=== PATIENT | female | born 1965 | race Caucasian/White ===

== ENCOUNTER 2017-02-09 09:03 | Emergency (ER) | payer MEDICAID, OTHER ==
[~2017-02-09] VITALS: Ht 167.6 cm; Wt 102.1 kg
--- OUTSIDE RECORDS SUMMARY | 2017-02-09 09:12 | XMS REPORT ---
Author MARJ Stoner [facility] eClinicalWorks Address Unknown Phone Unavailable Care Team Providers Care Service Desk Analyst Name Role Phone MARJ GRAY CP Unavailable Allergies, Adverse Reactions, Alerts Substance Reaction Event Type Morphine Unable to wake up Drug Allergy Problems Problem Type Condition Code Onset Dates Condition Status Assessment Breast cancer screening Z12.39 Active Problem Obesity (BMI 30.0-34.9) E66.9 Active Assessment Well woman exam with routine gynecological exam Z01.419 Active Assessment Anal warts A63.0 Active Assessment Cervical high risk human papillomavirus (HPV) DNA test positive R87.810 Active Problem Anal warts A63.0 Active Problem Migraine G43.909 Active Problem Cervical high risk human papillomavirus (HPV) DNA test positive R87.810 Active Problem Benign essential hypertension I10 Active Problem Allergic rhinitis J30.9 Active Problem Obesity E66.9 Active Problem Tobacco abuse Z72.0 Active Medications Medication Code System Code Instructions Start Date End Date Status Dosage Cetirizine HCl [facility] [address]-77 10 MG Orally Once a day 1 tablet Ibuprofen [facility] 80644845465 800 MG Orally 2 times a day PRN 1 tablet Lisinopril [facility] [address]-10 5 mg Orally Once a day Dec 19, 2014 1 tablet Amitriptyline HCl [facility] 60759370206 25 MG Orally Once a day 1 tablet Flonase NDC 0 50 mcg/actuation Nasally Once a day Mar 30, 2014 1 sprays by Nasal route 2 times per day in each nostril Hydrochlorothiazide [facility] [address]-10 12.5 MG Orally Once a day Dec 19, 2014 1 capsule Singulair [facility] [address]-33 10 mg Orally Once a day Oct 18, 2015 1 tablet Maxalt [facility] [address]-96 10 mg Orally take for only migraine headaches- may repeat every 2 hours up to 3 tablets total in 24hrs Dec 19, 2014 1 tablet Procedures Procedure Coding System Code Date Office Visit, Est Pt., Level 3 CPT-4 80317 Jan 07, 2016 SPECIMEN HANDLING CPT-4 15937 Jan 07, 2016 Vital Signs Date/Time: Jan 07, 2016 Cardiac Monitoring Heart Rate 81 bpm Weight 229.0 lbs Height 66 in BMI 36.96 Index Blood Pressure Diastolic 86 mmHg Blood Pressure Systolic 132 mmHg Results No Known Results Summary Purpose eClinicalWorks Submission
--- OUTSIDE RECORDS SUMMARY | 2017-02-09 09:12 | XMS REPORT ---
Author MARJ Stoner [facility] eClinicalWorks Address Unknown Phone Unavailable Care Team Providers Care Loss Control Engineer Name Role Phone MARJ GRAY CP Unavailable Allergies, Adverse Reactions, Alerts Substance Reaction Event Type Morphine Unable to wake up Drug Allergy Problems Problem Type Condition Code Onset Dates Condition Status Problem Obesity E66.9 Active Problem Tobacco abuse Z72.0 Active Problem Migraine G43.909 Active Problem Obesity (BMI 30.0-34.9) E66.9 Active Assessment Diarrhea, unspecified type R19.7 Active Problem Benign essential hypertension I10 Active Problem Allergic rhinitis J30.9 Active Medications Medication Code System Code Instructions Start Date End Date Status Dosage Acidophilus [facility] 19581-[address]750 100 MG Orally 2 times a day September 06, 2015 September 13, 2015 1 capsule Cetirizine HCl [facility] [address]-52 10 MG Orally Once a day Nov 07, 2014 Nov 02, 2015 1 tablet as needed Pepto-Bismol [facility] 21210-41947 262 MG Orally 3 times a day September 06, 2015 September 09, 2015 2 tablets Lisinopril [facility] [address]-74 5 mg Orally-FOLLOW UP IN NOVEMBER Once a day Dec 19, 2014 1 tablet Flonase [facility] [address]-71 50 mcg/actuation Nasally Once a day Mar 30, 2014 1 sprays by Nasal route 2 times per day in each nostril Hydrochlorothiazide [facility] [address]-87 12.5 MG Orally-FOLLOW UP IN NOVEMBER Once a day Dec 19, 2014 1 capsule Amitriptyline HCl [facility] 06526961307 25 MG Orally Once a day TAKE ONE TABLET BY MOUTH ONCE DAILY AT BEDTIME. Ibuprofen [facility] 34462383926 800 MG take 1 tablet twice a day as needed Orally Maxalt [facility] [address]-48 10 mg Orally take for only migraine headaches- may repeat every 2 hours up to 3 tablets total in 24hrs Dec 19, 2014 1 tablet Procedures Procedure Coding System Code Date Office Visit, Est Pt., Level 3 CPT-4 52104 September 06, 2015 Vital Signs Date/Time: September 06, 2015 Cardiac Monitoring Heart Rate 87 bpm Weight 228.3 lbs Height 66 in Blood Pressure Diastolic 60 mmHg Blood Pressure Systolic 108 mmHg Results No Known Results Summary Purpose eClinicalWorks Submission
--- OUTSIDE RECORDS SUMMARY | 2017-02-09 09:12 | XMS REPORT ---
Author [facility] Address [address] [place] [address] Care Team Providers Care Forest Ranger Name Role Phone MARJ GRAY Unavailable PROBLEMS Type Condition ICD9-CM Code [id number] Code Onset Dates Condition Status SNOMED Code Problem Obesity (BMI 30.0-34.9) E66.9 Active 188553455712731 Problem Benign essential hypertension I10 Active 6972683 Problem Allergic rhinitis J30.9 Active 09100295 Problem Bronchitis J40 Active 33651997 Problem Anal warts A63.0 Active 317365648 Problem Migraine G43.909 Active 55739148 Problem Tobacco abuse Z72.0 Active 27950569 Problem Cervical high risk human papillomavirus (HPV) DNA test positive R87.810 Active 487975266 Problem Obesity E66.9 Active 915209165 ALLERGIES Unknown Allergies SOCIAL HISTORY No smoking Hx information available PLAN OF CARE VITAL SIGNS MEDICATIONS Unknown Medications RESULTS No Results PROCEDURES No Known procedures IMMUNIZATIONS No Known Immunizations
--- OUTSIDE RECORDS SUMMARY | 2017-02-09 09:12 | XMS REPORT ---
Author MARJ Stoner eClinicalWorks Address Unknown Phone Unavailable Care Team Providers Care Dermatology Physician Assistant Name Role Phone MARJ GRAY CP Unavailable Allergies, Adverse Reactions, Alerts Substance Reaction Event Type Morphine Unable to wake up Drug Allergy Problems Problem Type Condition Code Onset Dates Condition Status Problem Benign essential hypertension I10 Active Problem Allergic rhinitis J30.9 Active Problem Tobacco abuse Z72.0 Active Assessment Recurrent acute sinusitis J01.91 Active Problem Obesity (BMI 30.0-34.9) E66.9 Active Assessment Head lice B85.0 Active Medications Medication Code System Code Instructions Start Date End Date Status Dosage Cetirizine HCl [facility] [address]-35 10 MG Orally Once a day Nov 07, 2014 Nov 02, 2015 1 tablet as needed Flonase [facility] [address]-67 50 mcg/actuation Nasally Once a day Mar 30, 2014 1 sprays by Nasal route 2 times per day in each nostril Sklice [facility] [address]-52 0.5 % Externally one time Dec 08, 2014 as directed Augmentin [facility] [address]-85 875-125 MG Orally every 12 hrs Dec 08, 2014 Dec 18, 2014 1 tablet Ibuprofen [facility] 70063023449 800 MG take 1 tablet by Oral route 2 times per day with food PRN PredniSONE [facility] [address]-42 20 MG Orally Once a day Dec 08, 2014 Dec 13, 2014 1 tablet with food or milk Lisinopril-Hydrochlorothiazide [facility] 43613042768 10-12.5 MG take 1 tablet by Oral route 1 time per day take in am Tessalon Perles [facility] [address]-69 100 MG Orally 3 times a day Dec 08, 2014 Dec 15, 2014 1 capsule as needed Procedures Procedure Coding System Code Date Office Visit, Est Pt., Level 3 CPT-4 74912 Dec 08, 2014 Vital Signs Date/Time: Dec 08, 2014 Temperature 97.8 F Weight 205.1 lbs Height 66 in BMI 33.10 Index Blood Pressure Diastolic 88 mmHg Blood Pressure Systolic 128 mmHg Cardiac Monitoring Heart Rate 97 bpm Results No Known Results Summary Purpose eClinicalWorks Submission
--- OUTSIDE RECORDS SUMMARY | 2017-02-09 09:12 | XMS REPORT ---
Author MARJ Stoner eClinicalWorks Address Unknown Phone Unavailable Care Team Providers Care Horticultural Agent Name Role Phone MARJ GRAY CP Unavailable Allergies, Adverse Reactions, Alerts Substance Reaction Event Type Morphine Unable to wake up Drug Allergy Problems Problem Type Condition Code Onset Dates Condition Status Assessment Obesity E66.9 Active Assessment Migraine G43.909 Active Assessment Allergic rhinitis J30.9 Active Problem Obesity E66.9 Active Problem Tobacco abuse Z72.0 Active Problem Migraine G43.909 Active Problem Obesity (BMI 30.0-34.9) E66.9 Active Assessment Benign essential hypertension I10 Active Problem Benign essential hypertension I10 Active Problem Allergic rhinitis J30.9 Active Medications Medication Code System Code Instructions Start Date End Date Status Dosage Flonase [facility] [address]-65 50 mcg/actuation Nasally Once a day Mar 30, 2014 1 sprays by Nasal route 2 times per day in each nostril Lisinopril [facility] [address]-03 5 MG Orally Once a day Dec 19, 2014 1 tablet Tessalon Perles [facility] [address]-42 not defined Hydrochlorothiazide [facility] [address]-94 12.5 MG Orally Once a day Dec 19, 2014 1 capsule Maxalt [facility] [address]-15 10 MG Orally take for only migraine headaches- may repeat every 2 hours up to 3 tablets total in 24hrs Dec 19, 2014 1 tablet Ibuprofen [facility] [address]-93 800 MG Orally twice a day as needed take 1 tablet Amitriptyline HCl [facility] [address]-18 25 MG Orally Once a day- bedtime Nov 1 tablet Procedures Procedure Coding System Code Date LIPID PANEL CPT-4 39298 Dec 19, 2014 COMPLETE CBC W/AUTO DIFF WBC CPT-4 60737 Dec 19, 2014 COMPREHEN METABOLIC PANEL CPT-4 20871 Dec 19, 2014 VENIPUNCT, ROUTINE* CPT-4 57768 Dec 19, 2014 ASSAY THYROID STIM HORMONE CPT-4 75002 Dec 19, 2014 Office Visit, Est Pt., Level 4 CPT-4 56723 Dec 19, 2014 Vital Signs Date/Time: Dec 19, 2014 Temperature 98.2 F Weight 203.8 lbs Height 66 in BMI 32.89 Index Blood Pressure Diastolic 78 mmHg Blood Pressure Systolic 110 mmHg Cardiac Monitoring Heart Rate 91 bpm Results Name Result Date Reference Range Unit Abnormality Flag ROUTINE VENIPUNCTURE Summary Purpose eClinicalWorks Submission
--- OUTSIDE RECORDS SUMMARY | 2017-02-09 09:12 | XMS REPORT ---
Author Author MARJ GRAY [facility] Address [address] [place] [address] Care Team Providers Care Strapping Machine Operator Name Role Phone MARJ GRAY Unavailable PROBLEMS Type Condition ICD9-CM Code [id number] Code Onset Dates Condition Status SNOMED Code Problem Obesity (BMI 30.0-34.9) E66.9 Active 168667506965231 Problem Benign essential hypertension I10 Active 6947101 Problem Allergic rhinitis J30.9 Active 10772850 Problem Bronchitis J40 Active 14610679 Problem Anal warts A63.0 Active 380550105 Problem Migraine G43.909 Active 29676651 Problem Tobacco abuse Z72.0 Active 81053789 Problem Cervical high risk human papillomavirus (HPV) DNA test positive R87.810 Active 958298072 Problem Obesity E66.9 Active 424085032 ALLERGIES Substance Reaction Event Type Date Status Morphine Unable to wake up Drug Allergy Apr, Active SOCIAL HISTORY Never Assessed PLAN OF CARE Activity Details Follow Up prn Reason: VITAL SIGNS Height 66 in 2016-04-14 Weight 228.8 lbs 2016-04-14 Temperature 99.8 degrees Fahrenheit 2016-04-14 Heart Rate 90 bpm 2016-04-14 Respiratory Rate 18 2016-04-14 BMI 36.93 kg/m2 2016-04-14 Blood pressure systolic 118 mmHg 2016-04-14 Blood pressure diastolic 82 mmHg 2016-04-14 MEDICATIONS Medication Instructions Dosage Frequency Start Date End Date Duration Status Flonase 50 mcg/actuation Nasally Once a day 1 sprays by Nasal route 2 times per day in each nostril 24h Mar, Active Cetirizine HCl 10 MG Orally Once a day 1 tablet 24h Active Hydrochlorothiazide 12.5 MG Orally Once a day 1 capsule 24h Nov, Active Sudafed 30 MG Orally 3 times a day 1 tablet as needed for congestion 8h Jan, Active Singulair 10 mg Orally Once a day 1 tablet 24h Sep, Active Maxalt 10 mg Orally take for only migraine headaches- may repeat every 2 hours up to 3 tablets total in 24hrs 1 tablet Nov, Active Ibuprofen 800 MG Orally 2 times a day PRN 1 tablet Active Lisinopril 5 mg Orally Once a day 1 tablet 24h Nov, Active Amitriptyline HCl 25 MG Orally Once a day 1 tablet 24h Active ProAir HFA 108 (90 Base) MCG/ACT Inhalation every 4-6 hours as needed 2 puffs as needed Apr, Active RESULTS Name Result Date Reference Range INFLUENZA A & B (IN HOUSE) 2016-04-14 INFLUENZA A neg INFLUENZA B neg Control pos Lot # [id number] Exp date 02/17/18 PROCEDURES Procedure Date Ordered Result Body Site INFLUENZA ASSAY W/OPTIC Apr 14, 2016 IMMUNIZATIONS No Known Immunizations MEDICAL (GENERAL) HISTORY Type Description Date Medical History Nondependent tobacco use disorder Medical History Essential hypertension, benign Medical History Migraine- frontal Surgical History tonsillectomy and adenoidectomy Surgical History cholecystectomy 1995 Hospitalization History childbirth only
--- OUTSIDE RECORDS SUMMARY | 2017-02-09 09:13 | XMS REPORT ---
Author MARJ Stoner [facility] eClinicalWorks Address Unknown Phone Unavailable Care Team Providers Care Aquatics Specialist Name Role Phone MARJ GRAY CP Unavailable Allergies, Adverse Reactions, Alerts Substance Reaction Event Type Morphine Unable to wake up Drug Allergy Problems Problem Type Condition Code Onset Dates Condition Status Assessment Tobacco abuse Z72.0 Active Assessment Migraine G43.909 Active Assessment Allergic rhinitis J30.9 Active Problem Obesity E66.9 Active Problem Tobacco abuse Z72.0 Active Problem Migraine G43.909 Active Problem Obesity (BMI 30.0-34.9) E66.9 Active Assessment Benign essential hypertension I10 Active Problem Benign essential hypertension I10 Active Problem Allergic rhinitis J30.9 Active Medications Medication Code System Code Instructions Start Date End Date Status Dosage Amitriptyline HCl [facility] 74567858446 25 MG Orally Once a day 1 tablet Hydrochlorothiazide [facility] [address]-42 12.5 MG Orally Once a day Dec 19, 2014 1 capsule Lisinopril [facility] [address]-34 5 mg Orally Once a day Dec 19, 2014 1 tablet Maxalt [facility] [address]-00 10 mg Orally take for only migraine headaches- may repeat every 2 hours up to 3 tablets total in 24hrs Dec 19, 2014 1 tablet Ibuprofen [facility] 01743811815 800 MG Orally 2 times a day PRN 1 tablet Flonase NDC 0 50 mcg/actuation Nasally Once a day Mar 30, 2014 1 sprays by Nasal route 2 times per day in each nostril Singulair [facility] [address]-40 10 mg Orally Once a day Oct 18, 2015 1 tablet Diflucan [facility] [address]-23 150 MG Orally once a day Oct 18, 2015 1 tablet Procedures Procedure Coding System Code Date VENIPUNCT, ROUTINE* CPT-4 83611 Dec 17, 2015 Office Visit, Est Pt., Level 3 CPT-4 22181 Dec 17, 2015 [facility] NOBLL Dec 17, 2015 Vital Signs Date/Time: Dec 17, 2015 Cardiac Monitoring Heart Rate 99 bpm Weight 223.6 lbs Height 66 in BMI 36.09 Index Blood Pressure Diastolic 90 mmHg Blood Pressure Systolic 132 mmHg Results Name Result Date Reference Range Unit Abnormality Flag ROUTINE VENIPUNCTURE CMP ----Sodium, Serum 142 [id number] 136-144 mmol/L ----BUN/Creatinine Ratio 13 92735026 9-23 ----Chloride, Serum 101 [id number] 97-106 mmol/L ----Potassium, Serum 3.3 69807348 3.5-5.2 mmol/L L ----Calcium, Serum 9.8 47785682 8.7-10.2 mg/dL ----Protein, Total, Serum 6.8 03361173 6.0-8.5 g/dL ----Carbon Dioxide, Total 25 94544244 18-29 mmol/L ----A/G Ratio 1.7 87954050 1.1-2.5 ----eGFR If NonAfricn Am 73 [id number] >59 mL/min/1.73 ----Bilirubin, Total <0.2 71533101 0.0-1.2 mg/dL ----eGFR If Africn Am 84 [id number] >59 mL/min/1.73 ----BUN 12 [id number] 6-24 mg/dL ----Albumin, Serum 4.3 62160076 3.5-5.5 g/dL ----Globulin, Total 2.5 63271762 1.5-4.5 g/dL ----Creatinine, Serum 0.92 93716272 0.57-1.00 mg/dL ----ALT (SGPT) 49 66891147 0-32 IU/L H ----Glucose, Serum 96 20213902 65-99 mg/dL ----Alkaline Phosphatase, S 68 01603498 39-117 IU/L ----AST (SGOT) 29 [id number] 0-40 IU/L Summary Purpose eClinicalWorks Submission
--- OUTSIDE RECORDS SUMMARY | 2017-02-09 09:13 | XMS REPORT ---
Author MARJ Stoner [facility] eClinicalWorks Address Unknown Phone Unavailable Care Team Providers Care Fermentation Scientist Name Role Phone MARJ GRAY CP Unavailable Allergies, Adverse Reactions, Alerts Substance Reaction Event Type Morphine Unable to wake up Drug Allergy Problems Problem Type Condition ICD-9 Code Onset Dates Condition Status Problem Allergic rhinitis, cause unspecified 477.9 Active Problem Essential hypertension, benign 401.1 Active Problem Nondependent tobacco use disorder 305.1 Active Assessment URI (upper respiratory infection) 465.9 Active Assessment Head lice 132.0 Active Problem Obesity, unspecified 278.00 Active Assessment Allergic rhinitis 477.9 Active Medications Medication Code System Code Instructions Start Date End Date Status Dosage Lisinopril-Hydrochlorothiazide [facility] [address]-46 10-12.5 mg Apr 18, 2014 take 1 tablet by Oral route 1 time per day take in am Flonase [facility] [address]-86 50 mcg/actuation Nasally Once a day Mar 30, 2014 1 sprays by Nasal route 2 times per day in each nostril Cetirizine HCl [facility] [address]-32 10 MG Orally Once a day Nov 07, 2014 Nov 02, 2015 1 tablet as needed Ibuprofen [facility] 45381338876 800 MG take 1 tablet by Oral route 2 times per day with food PRN Sklice [facility] [address]-67 0.5 % Externally one time Nov 07, 2014 as directed Procedures Procedure Coding System Code Date Office Visit, Est Pt., Level 3 CPT-4 22865 Nov 07, 2014 Vital Signs Date/Time: Nov 07, 2014 Temperature 97.4 F Weight 201.5 lbs Height 66 in BMI 32.52 Index Blood Pressure Diastolic 64 mmHg Blood Pressure Systolic 110 mmHg Cardiac Monitoring Heart Rate 88 bpm Results No Known Results Summary Purpose eClinicalWorks Submission
--- OUTSIDE RECORDS SUMMARY | 2017-02-09 09:13 | XMS REPORT ---
Author MARJ Stoner [facility] eClinicalWorks Address Unknown Phone Unavailable Care Team Providers Care Document Imaging Manager Name Role Phone MARJ GRAY CP Unavailable Allergies, Adverse Reactions, Alerts Substance Reaction Event Type Morphine Unable to wake up Drug Allergy Problems Problem Type Condition Code Onset Dates Condition Status Assessment Migraine G43.909 Active Assessment Insomnia G47.00 Active Problem Obesity E66.9 Active Problem Tobacco abuse Z72.0 Active Problem Migraine G43.909 Active Problem Obesity (BMI 30.0-34.9) E66.9 Active Assessment Benign essential hypertension I10 Active Problem Benign essential hypertension I10 Active Problem Allergic rhinitis J30.9 Active Medications Medication Code System Code Instructions Start Date End Date Status Dosage Lisinopril [facility] [address]-91 5 MG Orally Once a day Dec 19, 2014 1 tablet Cetirizine HCl [facility] [address]-63 10 MG Orally Once a day Nov 07, 2014 Nov 02, 2015 1 tablet as needed Ibuprofen [facility] [address]-00 800 MG Orally twice a day as needed take 1 tablet Maxalt [facility] [address]-68 10 MG Orally take for only migraine headaches- may repeat every 2 hours up to 3 tablets total in 24hrs Dec 19, 2014 1 tablet Amitriptyline HCl [facility] [address]-99 25 MG Orally Once a day- bedtime Nov 1 tablet Hydrochlorothiazide [facility] [address]-95 12.5 MG Orally Once a day Dec 19, 2014 1 capsule Flonase NDC 0 50 mcg/actuation Nasally Once a day Mar 30, 2014 1 sprays by Nasal route 2 times per day in each nostril Procedures Procedure Coding System Code Date Office Visit, Est Pt., Level 3 CPT-4 14156 Feb 15, 2015 Vital Signs Date/Time: Feb 15, 2015 Temperature 97.7 F Weight 213.5 lbs Height 66 in BMI 34.46 Index Blood Pressure Diastolic 78 mmHg Blood Pressure Systolic 116 mmHg Cardiac Monitoring Heart Rate 79 bpm Results No Known Results Summary Purpose eClinicalWorks Submission
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
--- OUTSIDE RECORDS SUMMARY | 2017-02-09 09:13 | XMS REPORT ---
Author Author PRESTON THAYER Organization eClinicalWorks Address Unknown Phone Unavailable Care Team Providers Care Gwot Ia/Ilo Intelligence Support Name Role Phone PRESTON THAYER CP Unavailable Allergies No Known Allergies Problems Problem Type Condition Code Onset Dates Condition Status Problem Obesity (BMI 30.0-34.9) E66.9 Active Problem Anal warts A63.0 Active Problem Migraine G43.909 Active Problem Cervical high risk human papillomavirus (HPV) DNA test positive R87.810 Active Problem Benign essential hypertension I10 Active Problem Allergic rhinitis J30.9 Active Problem Obesity E66.9 Active Problem Tobacco abuse Z72.0 Active Medications No Known Medications Results No Known Results Summary Purpose eClinicalWorks Submission
--- OUTSIDE RECORDS SUMMARY | 2017-02-09 09:13 | XMS REPORT ---
Author MARJ Stoner [facility] eClinicalWorks Address Unknown Phone Unavailable Care Team Providers Care Brazer [employer] Name Role Phone MARJ GRAY CP Unavailable Allergies No Known Allergies Problems Problem Type Condition Code Onset Dates Condition Status Problem Obesity E66.9 Active Problem Tobacco abuse Z72.0 Active Problem Migraine G43.909 Active Problem Obesity (BMI 30.0-34.9) E66.9 Active Assessment Elevated liver enzymes R74.8 Active Problem Benign essential hypertension I10 Active Problem Allergic rhinitis J30.9 Active Medications Medication Code System Code Instructions Start Date End Date Status Dosage Potassium Chloride [facility] [address]-14 20 MEQ Orally Once a day Dec 20, 2015 1 tablet with food Results No Known Results Summary Purpose eClinicalWorks Submission
--- OUTSIDE RECORDS SUMMARY | 2017-02-09 09:13 | XMS REPORT ---
Author MARJ Stoner eClinicalWorks Address Unknown Phone Unavailable Care Team Providers Care Construction Teacher Name Role Phone MARJ GRAY CP Unavailable Allergies, Adverse Reactions, Alerts Substance Reaction Event Type Morphine Unable to wake up Drug Allergy Problems Problem Type Condition Code Onset Dates Condition Status Assessment Acute recurrent sinusitis, unspecified location J01.91 Active Problem Obesity E66.9 Active Problem Tobacco abuse Z72.0 Active Problem Migraine G43.909 Active Problem Obesity (BMI 30.0-34.9) E66.9 Active Assessment Allergic rhinitis, unspecified allergic rhinitis trigger, unspecified rhinitis seasonality J30.9 Active Problem Benign essential hypertension I10 Active Problem Allergic rhinitis J30.9 Active Medications Medication Code System Code Instructions Start Date End Date Status Dosage Singulair [facility] [address]-54 10 mg Orally Once a day Oct 18, 2015 1 tablet in the evening Augmentin [facility] [address]-83 875-125 MG Orally every 12 hrs Oct 18, 2015 Oct 28, 2015 1 tablet Cetirizine HCl [facility] [address]-23 10 MG Orally Once a day Nov 07, 2014 Nov 02, 2015 1 tablet as needed Hydrochlorothiazide [facility] [address]-36 12.5 MG Orally-FOLLOW UP IN NOVEMBER Once a day Dec 19, 2014 1 capsule [address]iflucan [facility] [address]-44 150 MG Orally once a day Oct 18, 2015 1 tablet [address]alt [facility] [address]-44 10 mg Orally take for only migraine headaches- may repeat every 2 hours up to 3 tablets total in 24hrs Dec 19, 2014 1 tablet Flonase [place] 0 50 mcg/actuation Nasally Once a day Mar 30, 2014 1 sprays by Nasal route 2 times per day in each nostril Lisinopril [facility] [address]-25 5 mg Orally-FOLLOW UP IN NOVEMBER Once a day Dec 19, 2014 1 tablet Amitriptyline HCl [facility] 26887912951 25 MG Orally Once a day TAKE ONE TABLET BY MOUTH ONCE DAILY AT BEDTIME. Ibuprofen [facility] 02995459365 800 MG take 1 tablet twice a day as needed Orally Procedures Procedure Coding System Code Date Office Visit, Est Pt., Level 3 CPT-4 08859 Oct 18, 2015 Vital Signs Date/Time: Oct 18, 2015 Cardiac Monitoring Heart Rate 86 bpm Weight 224.5 lbs Height 66 in BMI 36.23 Index Blood Pressure Diastolic 62 mmHg Blood Pressure Systolic 110 mmHg Results No Known Results Summary Purpose eClinicalWorks Submission
--- OUTSIDE RECORDS SUMMARY | 2017-02-09 09:13 | XMS REPORT ---
Author MARJ Stoner [facility] eClinicalWorks Address Unknown Phone Unavailable Care Team Providers Care Dam Worker Name Role Phone MARJ GRAY CP Unavailable Allergies, Adverse Reactions, Alerts Substance Reaction Event Type Morphine Unable to wake up Drug Allergy Problems Problem Type Condition Code Onset Dates Condition Status Assessment Viral infection B34.9 Active Problem Obesity E66.9 Active Problem Tobacco abuse Z72.0 Active Problem Migraine G43.909 Active Problem Obesity (BMI 30.0-34.9) E66.9 Active Assessment Other fatigue R53.83 Active Problem Benign essential hypertension I10 Active Problem Allergic rhinitis J30.9 Active Medications Medication Code System Code Instructions Start Date End Date Status Dosage Ibuprofen [facility] 35779220870 800 MG Orally 2 times a day PRN 1 tablet Singulair [facility] [address]-30 10 mg Orally Once a day Oct 18, 2015 1 tablet Cetirizine HCl [facility] [address]-36 10 MG Orally Once a day 1 tablet Hydrochlorothiazide [facility] [address]-46 12.5 MG Orally Once a day Dec 19, 2014 1 capsule Maxalt [facility] [address]-64 10 mg Orally take for only migraine headaches- may repeat every 2 hours up to 3 tablets total in 24hrs Dec 19, 2014 1 tablet Lisinopril [facility] [address]-18 5 mg Orally Once a day Dec 19, 2014 1 tablet Amitriptyline HCl [facility] 50368730158 25 MG Orally Once a day 1 tablet Procedures Procedure Coding System Code Date Office Visit, Est Pt., Level 3 CPT-4 85361 Jan 05, 2016 Vital Signs Date/Time: Jan 05, 2016 Cardiac Monitoring Heart Rate 80 bpm Weight 228.1 lbs Height 66 in BMI 36.81 Index Blood Pressure Diastolic 88 mmHg Blood Pressure Systolic 128 mmHg Results No Known Results Summary Purpose eClinicalWorks Submission
--- OUTSIDE RECORDS SUMMARY | 2017-02-09 09:14 | XMS REPORT | Continuity of Care Document ---
Author Author [facility] Address Unknown Phone Unavailable Allergies Active Description Code Type Severity Reaction Onset Reported/Identified Relationship to Patient Clinical Status Yes morphine Drug Allergy 08/20/2011 Yes morphine Drug Allergy N/A N/A 08/20/2011 Medications Problems Date Dx Coded Attending Type Code Diagnosis Diagnosed By 09/18/2007 CHERELLE NICOLE DDS 465.9 UPPER RESPIRATORY INFECTION 09/18/2007 465.9 UPPER RESPIRATORY INFECTION 09/18/2007 465.9 UPPER RESPIRATORY INFECTION 09/18/2007 465.9 UPPER RESPIRATORY INFECTION 09/18/2007 POPEYE COOL APRN 465.9 UPPER RESPIRATORY INFECTION 09/18/2007 CARLI MENDOZA APRN, ANTOINETTE N 465.9 UPPER RESPIRATORY INFECTION 09/18/2007 MATT APRN, AYANNA A 465.9 UPPER RESPIRATORY INFECTION 09/18/2007 HASKINS DO, MOMO K 465.9 UPPER RESPIRATORY INFECTION 09/18/2007 HASKINS DO, MOMO K 465.9 UPPER RESPIRATORY INFECTION 09/18/2007 HASKINS DO, MOMO K 465.9 UPPER RESPIRATORY INFECTION 09/18/2007 MATT 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 HELPER, AYANNA A 465.9 UPPER RESPIRATORY INFECTION 09/18/2007 HASKINS DO, MOMO K 465.9 UPPER RESPIRATORY INFECTION 09/18/2007 HASKINS DO, MOMO K 465.9 UPPER RESPIRATORY INFECTION 09/18/2007 MARJ GRAY APRN 465.9 UPPER RESPIRATORY INFECTION 09/18/2007 BOYCE CASHERO 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 HELPER, ANTOINETTE N 465.9 UPPER RESPIRATORY INFECTION 09/18/2007 BOYCEBRENDA MENDOZA APRN, ANTOINETTE N 465.9 UPPER RESPIRATORY INFECTION 09/18/2007 HASKINS DO, MOMO K 465.9 UPPER RESPIRATORY INFECTION 09/18/2007 HASKINS DO, MOMO K 465.9 UPPER RESPIRATORY INFECTION 09/18/2007 VINH DONATO, RICH Zimmer 465.9 UPPER RESPIRATORY INFECTION 05/05/2008 CHERELLE NICOLE DDS 401.1 ESSENTIAL HYPERTENSION BENIGN 05/05/2008 THOR NICOLE DDSON F 780.6 FEVER 05/05/2008 401.1 ESSENTIAL HYPERTENSION BENIGN 05/05/2008 780.6 FEVER 05/05/2008 401.1 ESSENTIAL HYPERTENSION BENIGN 05/05/2008 780.6 FEVER 05/05/2008 401.1 ESSENTIAL HYPERTENSION BENIGN 05/05/2008 780.6 FEVER 05/05/2008 EATON 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 HELPER, POPEYE L 401.1 ESSENTIAL HYPERTENSION BENIGN 05/05/2008 EATON 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 HELPER, POPEYE L 780.6 FEVER 05/05/2008 BOYCE CASHERO 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 HELPER, ANTOINETTE N 401.1 ESSENTIAL HYPERTENSION BENIGN 05/05/2008 BOYCE CASHERO 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 HELPER, ANTOINETTE N 780.6 FEVER 05/05/2008 MATT 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 HELPER, AYANNA A 401.1 ESSENTIAL HYPERTENSION BENIGN 05/05/2008 MATT 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 HELPER, AYANNA A 780.6 FEVER 05/05/2008 HASKINS DO, MOMO K 401.1 ESSENTIAL HYPERTENSION BENIGN 05/05/2008 HASKINS DO, MOMO K 780.6 FEVER 05/05/2008 HASKINS DO, MOMO K 401.1 ESSENTIAL HYPERTENSION BENIGN 05/05/2008 HASKINS DO, MOMO K 780.6 FEVER 05/05/2008 HASKINS DO, MOMO K 401.1 ESSENTIAL HYPERTENSION BENIGN 05/05/2008 HASKINS DO, MOMO K 780.6 FEVER 05/05/2008 MATT 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 HELPER, AYANNA A 401.1 ESSENTIAL HYPERTENSION BENIGN 05/05/2008 MATT 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 HELPER, AYANNA A 780.6 FEVER 05/05/2008 HASKINS DO, MOMO K 401.1 ESSENTIAL HYPERTENSION BENIGN 05/05/2008 HASKINS DO, MOMO K 780.6 FEVER 05/05/2008 HASKINS DO, MOMO K 401.1 ESSENTIAL HYPERTENSION BENIGN 05/05/2008 HASKINS DO, MOMO K 780.6 FEVER 05/05/2008 GRAY 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 HELPER, MARJ J 401.1 ESSENTIAL HYPERTENSION BENIGN 05/05/2008 GRAY 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 HELPER, MARJ J 780.6 FEVER 05/05/2008 BOYCE CASHERO 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 HELPER, ANTOINETTE N 401.1 ESSENTIAL HYPERTENSION BENIGN 05/05/2008 BOYCE CASHERO 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 HELPER, ANTOINETTE N 780.6 FEVER 05/05/2008 BOYCE CASHERO 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 HELPER, ANTOINETTE N 401.1 ESSENTIAL HYPERTENSION BENIGN 05/05/2008 BOYCE CASHERO 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 HELPER, ANTOINETTE N 780.6 FEVER 05/05/2008 HASKINS DO MOMO K 401.1 ESSENTIAL HYPERTENSION BENIGN 05/05/2008 HASKINS DO, MOMO K 780.6 FEVER 05/05/2008 HASKINS DO, MOMO K 401.1 ESSENTIAL HYPERTENSION BENIGN 05/05/2008 HASKINS DO, MOMO K 780.6 FEVER 05/05/2008 RICH JUSTICE MD 401.1 ESSENTIAL HYPERTENSION BENIGN 05/05/2008 RICH JUSTICE MD 780.6 FEVER 08/20/2011 BONNIE DDS, CHERELLE F 305.1 NICOTINE DEPENDENCE - CONTINUOUS 08/20/2011 BONNIE DDS, CHERELLE F 461.9 SINUSITIS ACUTE 08/20/2011 BONNIE DDS, CHERELLE F 784.0 HEADACHE 08/20/2011 305.1 NICOTINE DEPENDENCE - CONTINUOUS 08/20/2011 461.9 SINUSITIS ACUTE 08/20/2011 784.0 HEADACHE 08/20/2011 305.1 NICOTINE DEPENDENCE - CONTINUOUS 08/20/2011 461.9 SINUSITIS ACUTE 08/20/2011 784.0 HEADACHE 08/20/2011 305.1 NICOTINE DEPENDENCE - CONTINUOUS 08/20/2011 461.9 SINUSITIS ACUTE 08/20/2011 784.0 HEADACHE 08/20/2011 SILVINA GLEASONLi POPEYE L 305.1 NICOTINE DEPENDENCE - CONTINUOUS 08/20/2011 SILVINA GLEASONLi POPEYE L 461.9 SINUSITIS ACUTE 08/20/2011 SILVINA GLEASONLi POPEYE L 784.0 HEADACHE 08/20/2011 ANTOINETTE MASTERS APRN N 305.1 NICOTINE DEPENDENCE - CONTINUOUS 08/20/2011 ANTOINETTE MASTERS APRN N 461.9 SINUSITIS ACUTE 08/20/2011 CARLI MENDOZA APRN ANTOINETTE N 784.0 HEADACHE 08/20/2011 MATTLi REMY AYANNA A 305.1 NICOTINE DEPENDENCE - CONTINUOUS 08/20/2011 MATT REMY AYANNA A 461.9 SINUSITIS ACUTE 08/20/2011 MATTJASS REMY AYANNA A 784.0 HEADACHE 08/20/2011 VIELKA HASKINS DOA K 305.1 NICOTINE DEPENDENCE - CONTINUOUS 08/20/2011 DIVINE FRANCO MOMO K 461.9 SINUSITIS ACUTE 08/20/2011 VIELKA HASKINS DOA K 784.0 HEADACHE 08/20/2011 HASKINS DO, MOMO K 305.1 NICOTINE DEPENDENCE - CONTINUOUS 08/20/2011 HASKINS DO, MOMO K 461.9 SINUSITIS ACUTE 08/20/2011 HASKINS DO, MOMO K 784.0 HEADACHE 08/20/2011 HASKINS DO, MOMO K 305.1 NICOTINE DEPENDENCE - CONTINUOUS 08/20/2011 HASKINS DO, MOMO K 461.9 SINUSITIS ACUTE 08/20/2011 HASKINS DO, MOMO K 784.0 HEADACHE 08/20/2011 MATT 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 HELPER, AYANNA A 305.1 NICOTINE DEPENDENCE - CONTINUOUS 08/20/2011 MATT 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 HELPER, AYANNA A 461.9 SINUSITIS ACUTE 08/20/2011 MATT 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 HELPER, AYANNA A 784.0 HEADACHE 08/20/2011 HASKINS DO, MOMO K 305.1 NICOTINE DEPENDENCE - CONTINUOUS 08/20/2011 HASKINS DO, MOMO K 461.9 SINUSITIS ACUTE 08/20/2011 HASKINS DO, MOMO K 784.0 HEADACHE 08/20/2011 HASKINS DO, MOMO K 305.1 NICOTINE DEPENDENCE - CONTINUOUS 08/20/2011 HASKINS DO, MOMO K 461.9 SINUSITIS ACUTE 08/20/2011 HASKINS DO, MOMO K 784.0 HEADACHE 08/20/2011 MARJ GRAY APRN J 305.1 NICOTINE DEPENDENCE - CONTINUOUS 08/20/2011 MARJ GRAY APRN J 461.9 SINUSITIS ACUTE 08/20/2011 MARJ GRAY APRN J 784.0 HEADACHE 08/20/2011 BOYCE CASHERO 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 HELPER, ANTOINETTE N 305.1 NICOTINE DEPENDENCE - CONTINUOUS 08/20/2011 BOYCE CASHERO 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 HELPER, ANTOINETTE N 461.9 SINUSITIS ACUTE 08/20/2011 BOYCE CASHERO 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 HELPER, ANTOINETTE N 784.0 HEADACHE 08/20/2011 BOYCE CASHERO 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 HELPER, ANTOINETTE N 305.1 NICOTINE DEPENDENCE - CONTINUOUS 08/20/2011 BOYCE CASHERO 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 HELPER, ANTOINETTE N 461.9 SINUSITIS ACUTE 08/20/2011 BOYCE CASHERO 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 HELPER, ANTOINETTE N 784.0 HEADACHE 08/20/2011 HASKINS DO, MOMO K 305.1 NICOTINE DEPENDENCE - CONTINUOUS 08/20/2011 HASKINS DO, MOMO K 461.9 SINUSITIS ACUTE 08/20/2011 HASKINS DO, MOMO K 784.0 HEADACHE 08/20/2011 HASKINS DO, MOMO K 305.1 NICOTINE DEPENDENCE - CONTINUOUS 08/20/2011 HASKINS DO, MOMO K 461.9 SINUSITIS ACUTE 08/20/2011 HASKINS DO, MOMO K 784.0 HEADACHE 08/20/2011 RICH JUSTICE MD 305.1 NICOTINE DEPENDENCE - CONTINUOUS 08/20/2011 RICH JUSTICE MD 461.9 SINUSITIS ACUTE 08/20/2011 RICH JUSTICE MD 784.0 HEADACHE 08/30/2011 BONNIE DDS, CHERELLE F 278.00 OBESITY 08/30/2011 BONNIE DDS, CHERELLE F 786.2 cough 08/30/2011 278.00 OBESITY 08/30/2011 786.2 cough 08/30/2011 278.00 OBESITY 08/30/2011 786.2 cough 08/30/2011 278.00 OBESITY 08/30/2011 786.2 cough 08/30/2011 ANDRADE COOL APRNSON L 278.00 OBESITY 08/30/2011 ANDRADE COOL APRNSON L 786.2 cough 08/30/2011 CARLI MENDOZA APRN, ANTOINETTE N 278.00 OBESITY 08/30/2011 BOYCEBRENDA MORGANERO 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 HELPER, ANTOINETTE N 786.2 cough 08/30/2011 MATTJASS REMY, AYANNA A 278.00 OBESITY 08/30/2011 MATTJASS REMY, AYANNA A 786.2 cough 08/30/2011 HASKINS DO, MOMO K 278.00 OBESITY 08/30/2011 HASKINS DO, MOMO K 786.2 cough 08/30/2011 HASKINS DO, MOMO K 278.00 OBESITY 08/30/2011 HASKINS DO, MOMO K 786.2 cough 08/30/2011 HASKINS DO, MOMO K 278.00 OBESITY 08/30/2011 HASKINS DO, MOMO K 786.2 cough 08/30/2011 MATT REMY, AYANNA A 278.00 OBESITY 08/30/2011 MATT REMY, AYANNA A 786.2 cough 08/30/2011 HASKINS DO, MOMO K 278.00 OBESITY 08/30/2011 HASKINS DO, MOMO K 786.2 cough 08/30/2011 HASKINS DO, MOMO K 278.00 OBESITY 08/30/2011 HASKINS DO, MOMO K 786.2 cough 08/30/2011 MARJ GRAY APRN 278.00 OBESITY 08/30/2011 GRAY 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 HELPERMARJ Jefferson 786.2 cough 08/30/2011 CARLI MENDOZA 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 HELPER, ANTOINETTE N 278.00 OBESITY 08/30/2011 BOYCE CATHYERO 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 HELPER, ANTOINETTE N 786.2 cough 08/30/2011 CARLI MORGANERO 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 HELPER, ANTOINETTE N 278.00 OBESITY 08/30/2011 CARLI MORGANERO 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 HELPER, ANTOINETTE N 786.2 cough 08/30/2011 HASKINS DO, MOMO K 278.00 OBESITY 08/30/2011 HASKINS DO, MOMO K 786.2 cough 08/30/2011 HASKINS DO, MOMO K 278.00 OBESITY 08/30/2011 HASKINS DO, MOMO K 786.2 cough 08/30/2011 VINH DONATO, RICH Zimmer 278.00 OBESITY 08/30/2011 VINH DONATO, RICH Zimmer 786.2 cough 09/05/2011 BONNIE DDS, CHERELLE F 466.0 ACUTE BRONCHITIS 09/05/2011 466.0 ACUTE BRONCHITIS 09/05/2011 466.0 ACUTE BRONCHITIS 09/05/2011 466.0 ACUTE BRONCHITIS 09/05/2011 SILVINA SANDRITA POPEYE L 466.0 ACUTE BRONCHITIS 09/05/2011 BOYCEBRENDA MENDOZA APRN, ANTOINETTE N 466.0 ACUTE BRONCHITIS 09/05/2011 MATTJASS REMY, AYANNA A 466.0 ACUTE BRONCHITIS 09/05/2011 HASKINS DO, MOMO K 466.0 ACUTE BRONCHITIS 09/05/2011 HASKINS DO, MOMO K 466.0 ACUTE BRONCHITIS 09/05/2011 HASKINS DO, MOMO K 466.0 ACUTE BRONCHITIS 09/05/2011 MATT REMY, AYANNA A 466.0 ACUTE BRONCHITIS 09/05/2011 HASKINS DO, MOMO K 466.0 ACUTE BRONCHITIS 09/05/2011 HASKINS DO, MOMO K 466.0 ACUTE BRONCHITIS 09/05/2011 MARJ GRAY APRN 466.0 ACUTE BRONCHITIS 09/05/2011 CARLI MENDOZA 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 HELPER, ANTOINETTE N 466.0 ACUTE BRONCHITIS 09/05/2011 BOYCE CATHYERO 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 HELPER, ANTOINETTE N 466.0 ACUTE BRONCHITIS 09/05/2011 HASKINS DO, MOMO K 466.0 ACUTE BRONCHITIS 09/05/2011 HASKINS DO, MOMO K 466.0 ACUTE BRONCHITIS 09/05/2011 RICH JUSTICE MD 466.0 ACUTE BRONCHITIS 07/08/2012 522.5 PERIAPICAL ALVEOLAR ABSCESS 07/08/2012 522.5 PERIAPICAL ALVEOLAR ABSCESS 07/08/2012 522.5 PERIAPICAL ALVEOLAR ABSCESS 07/08/2012 POPEYE COOL APRN 522.5 PERIAPICAL ALVEOLAR ABSCESS 07/08/2012 BOYCEBRENDA MENDOZA APRN, ANTOINETTE N 522.5 PERIAPICAL ALVEOLAR ABSCESS 07/08/2012 AYANNA GUTIERREZ APRN A 522.5 PERIAPICAL ALVEOLAR ABSCESS 07/08/2012 HASKINS DO, MOMO K 522.5 PERIAPICAL ALVEOLAR ABSCESS 07/08/2012 HASKINS DO, MOMO K 522.5 PERIAPICAL ALVEOLAR ABSCESS 07/08/2012 HASKINS DO, MOMO K 522.5 PERIAPICAL ALVEOLAR ABSCESS 07/08/2012 AYANNA GUTIERREZ APRN A 522.5 PERIAPICAL ALVEOLAR ABSCESS 07/08/2012 HASKINS DO, MOMO K 522.5 PERIAPICAL ALVEOLAR ABSCESS 07/08/2012 HASKINS DO, MOMO K 522.5 PERIAPICAL ALVEOLAR ABSCESS 07/08/2012 MARJ GRAY APRN 522.5 PERIAPICAL ALVEOLAR ABSCESS 07/08/2012 BOYCERAND AVILA APRNCY N 522.5 PERIAPICAL ALVEOLAR ABSCESS 07/08/2012 BOYCE CATHYISAMAR REMY, ANTOINETTE N 522.5 PERIAPICAL ALVEOLAR ABSCESS 07/08/2012 HASKINS DO, MOMO K 522.5 PERIAPICAL ALVEOLAR ABSCESS 07/08/2012 HASKINS DO, MOMO K 522.5 PERIAPICAL ALVEOLAR ABSCESS 07/08/2012 RICH JUSTICE MD 522.5 PERIAPICAL ALVEOLAR ABSCESS 08/09/2012 521.00 CARIES 08/09/2012 521.00 CARIES 08/09/2012 POPEYE COOL APRN 521.00 CARIES 08/09/2012 BOYCEANTOINETTE AVILA APRN N 521.00 CARIES 08/09/2012 AYANNA GUTIERREZ APRN A 521.00 CARIES 08/09/2012 HASKINS DO, MOMO K 521.00 CARIES 08/09/2012 HASKINS DO, MOMO K 521.00 CARIES 08/09/2012 HASKINS DO, MOMO K 521.00 CARIES 08/09/2012 MATT 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 HELPER, AYANNA A 521.00 CARIES 08/09/2012 HASKINS DO, MOMO K 521.00 CARIES 08/09/2012 HASKINS DO, MOMO K 521.00 CARIES 08/09/2012 MARJ GRAY APRN 521.00 CARIES 08/09/2012 BOYCEBRENDA MENDOZA APRN, ANTOINETTE N 521.00 CARIES 08/09/2012 BOYCEBRENDA MENDOZA APRN, ANTOINETTE N 521.00 CARIES 08/09/2012 HASKINS DO, MOMO K 521.00 CARIES 08/09/2012 HASKINS DO, MOMO K 521.00 CARIES 08/09/2012 VINH DONATO, RICH Zimmer 521.00 CARIES 10/07/2012 780.4 dizziness 10/07/2012 POPEYE COOL APRN 780.4 dizziness 10/07/2012 BOYCEBRENDA MENDOZA APRN, ANTOINETTE N 780.4 dizziness 10/07/2012 MATT APRN, AYANNA A 780.4 dizziness 10/07/2012 HASKINS DO, MOMO K 780.4 dizziness 10/07/2012 HASKINS DO, MOMO K 780.4 dizziness 10/07/2012 HASKINS DO, MOMO K 780.4 dizziness 10/07/2012 AMTTJASS GLEASONN, AYANNA A 780.4 dizziness 10/07/2012 HASKINS DO, MOMO K 780.4 dizziness 10/07/2012 HASKINS DO, MOMO K 780.4 dizziness 10/07/2012 MARJ GRAY APRN 780.4 dizziness 10/07/2012 BOYCEBRENDA MENDOZA APRN, ANTOINETTE N 780.4 dizziness 10/07/2012 BOYCEBRENDA MENDOZA APRN, ANTOINETTE N 780.4 dizziness 10/07/2012 HASKINS DO, MOMO K 780.4 dizziness 10/07/2012 HASKINS DO, MOMO K 780.4 dizziness 10/07/2012 RICH JUSTICE MD 780.4 dizziness 11/24/2012 POPEYE OCOL APRN 796.2 REACTIVE BP 11/24/2012 BOYCEBRENDA MENDOZA APRN, ANTOINETTE N 796.2 REACTIVE BP 11/24/2012 MATT 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 HELPER, AYANNA A 796.2 REACTIVE BP 11/24/2012 HASKINS DO, MOMO K 796.2 REACTIVE BP 11/24/2012 HASKINS DO, MOMO K 796.2 REACTIVE BP 11/24/2012 HASKINS DO, MOMO K 796.2 REACTIVE BP 11/24/2012 MATT 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 HELPER, AYANNA A 796.2 REACTIVE BP 11/24/2012 HASKINS DO, MOMO K 796.2 REACTIVE BP 11/24/2012 HASKINS DO, MOMO K 796.2 REACTIVE BP 11/24/2012 GRAYMARIANA REMY, MARJ J 796.2 REACTIVE BP 11/24/2012 BOYCE CASHERO 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 HELPER, ANTOINETTE N 796.2 REACTIVE BP 11/24/2012 BOYCE CASHERO 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 HELPER, ANTOINETTE N 796.2 REACTIVE BP 11/24/2012 HASKINS DO, MOMO K 796.2 REACTIVE BP 11/24/2012 HASKINS DO, MOMO K 796.2 REACTIVE BP 11/24/2012 VINH DONATO, RICH A 796.2 REACTIVE BP 12/01/2012 BOYCE CASHERO 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 HELPER, ANTOINETTE N V67.9 UNSPECIFIED FOLLOW-UP EXAMINATION 12/01/2012 BOYCE CATHYERO 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 HELPER, ANTOINETTE N V69.2 HIGH-RISK SEXUAL BEHAVIOR 12/01/2012 MATT 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 HELPER, AYANNA A V67.9 UNSPECIFIED FOLLOW-UP EXAMINATION 12/01/2012 MATT 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 HELPER, AYANNA A V69.2 HIGH-RISK SEXUAL BEHAVIOR 12/01/2012 HASKINS DO, MOMO K V67.9 UNSPECIFIED FOLLOW-UP EXAMINATION 12/01/2012 HASKINS DO, MOMO K V69.2 HIGH-RISK SEXUAL BEHAVIOR 12/01/2012 HASKINS DO, MOMO K V67.9 UNSPECIFIED FOLLOW-UP EXAMINATION 12/01/2012 HASKINS DO, MOMO K V69.2 HIGH-RISK SEXUAL BEHAVIOR 12/01/2012 HASKINS DO, MOMO K V67.9 UNSPECIFIED FOLLOW-UP EXAMINATION 12/01/2012 HASKINS DO, MOMO K V69.2 HIGH-RISK SEXUAL BEHAVIOR 12/01/2012 MATT 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 HELPER, AYANNA A V67.9 UNSPECIFIED FOLLOW-UP EXAMINATION 12/01/2012 MATT 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 HELPER, AYANNA A V69.2 HIGH-RISK SEXUAL BEHAVIOR 12/01/2012 HASKINS DO, MOMO K V67.9 UNSPECIFIED FOLLOW-UP EXAMINATION 12/01/2012 HASKINS DO, MOMO K V69.2 HIGH-RISK SEXUAL BEHAVIOR 12/01/2012 HASKINS DO, MOMO K V67.9 UNSPECIFIED FOLLOW-UP EXAMINATION 12/01/2012 HASKINS DO, MOMO K V69.2 HIGH-RISK SEXUAL BEHAVIOR 12/01/2012 GRAY 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 HELPER, MARJ J V67.9 UNSPECIFIED FOLLOW-UP EXAMINATION 12/01/2012 GRAY 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 HELPER, MARJ Hamilton V69.2 HIGH-RISK SEXUAL BEHAVIOR 12/01/2012 BOYCE CASHERO 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 HELPER, ANTOINETTE N V67.9 UNSPECIFIED FOLLOW-UP EXAMINATION 12/01/2012 BOYCE CASHERO 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 HELPER, ANTOINETTE N V69.2 HIGH-RISK SEXUAL BEHAVIOR 12/01/2012 BOYCE CASHERO 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 HELPER, ANTOINETTE N V67.9 UNSPECIFIED FOLLOW-UP EXAMINATION 12/01/2012 BOYCE CASHERO 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 HELPER, ANTOINETTE N V69.2 HIGH-RISK SEXUAL BEHAVIOR 12/01/2012 HASKINS DO MOMO K V67.9 UNSPECIFIED FOLLOW-UP EXAMINATION 12/01/2012 HASKINS DO MOMO K V69.2 HIGH-RISK SEXUAL BEHAVIOR 12/01/2012 HASKINS DO MOMO K V67.9 UNSPECIFIED FOLLOW-UP EXAMINATION 12/01/2012 HASKINS DO MOMO K V69.2 HIGH-RISK SEXUAL BEHAVIOR 12/01/2012 RICH JUSTICE MD V67.9 UNSPECIFIED FOLLOW-UP EXAMINATION 12/01/2012 RICH JUSTICE MD V69.2 HIGH-RISK SEXUAL BEHAVIOR 12/13/2012 MATT REMY, AYANNA A V25.09 CONTRACEPTIVE COUNSELING - GENERAL 12/13/2012 MATT REMY, AYANNA A V73.81 HPV SCREENING 12/13/2012 MATT REMY, AYANNA A V74.5 STD SCREEN 12/13/2012 MATT APRN, AYANNA A V76.10 BREAST CANCER SCREENING 12/13/2012 MATT APRN, AYANNA A V76.2 CERVICAL CANCER SCREENING (PAP SMEAR) 12/13/2012 DIVINE FRANCO MOMO K V25.09 CONTRACEPTIVE COUNSELING - GENERAL 12/13/2012 HASKINS DO MOMO K V73.81 HPV SCREENING 12/13/2012 HASKINS DO MOMO K V74.5 STD SCREEN 12/13/2012 HASKINS DO MOMO K V76.10 BREAST CANCER SCREENING 12/13/2012 HASKINS DO MOMO K V76.2 CERVICAL CANCER SCREENING (PAP SMEAR) 12/13/2012 HASKINS DO MOMO K V25.09 CONTRACEPTIVE COUNSELING - GENERAL 12/13/2012 HASKINS DO MOMO K V73.81 HPV SCREENING 12/13/2012 HASKINS DO, MOMO K V74.5 STD SCREEN 12/13/2012 HASKINS DO, MOMO K V76.10 BREAST CANCER SCREENING 12/13/2012 HASKINS DO, MOMO K V76.2 CERVICAL CANCER SCREENING (PAP SMEAR) 12/13/2012 HASKINS DO MOMO K V25.09 CONTRACEPTIVE COUNSELING - GENERAL 12/13/2012 HASKINS DO, MOMO K V73.81 HPV SCREENING 12/13/2012 HASKINS DO, MOMO K V74.5 STD SCREEN 12/13/2012 HASKINS DO, MOMO K V76.10 BREAST CANCER SCREENING 12/13/2012 HASKINS DO, MMOO K V76.2 CERVICAL CANCER SCREENING (PAP SMEAR) 12/13/2012 MATT GLEASONN, AYANNA A V25.09 CONTRACEPTIVE COUNSELING - GENERAL 12/13/2012 MATT 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 HELPER, AYANNA A V73.81 HPV SCREENING 12/13/2012 MATT 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 HELPER, AYANNA A V74.5 STD SCREEN 12/13/2012 MATT 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 HELPER, AYANNA A V76.10 BREAST CANCER SCREENING 12/13/2012 MATT 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 HELPER, AYANNA A V76.2 CERVICAL CANCER SCREENING (PAP SMEAR) 12/13/2012 HASKINS DO MOMO K V25.09 CONTRACEPTIVE COUNSELING - GENERAL 12/13/2012 HASKINS DO MOMO K V73.81 HPV SCREENING 12/13/2012 HASKINS DO MOMO K V74.5 STD SCREEN 12/13/2012 HASKINS DO MOMO K V76.10 BREAST CANCER SCREENING 12/13/2012 HASKINS DO, MOMO K V76.2 CERVICAL CANCER SCREENING (PAP SMEAR) 12/13/2012 HASKINS DO MOMO K V25.09 CONTRACEPTIVE COUNSELING - GENERAL 12/13/2012 HASKINS DO MOMO K V73.81 HPV SCREENING 12/13/2012 HASKINS DO, MOMO K V74.5 STD SCREEN 12/13/2012 HASKINS DO, MOMO K V76.10 BREAST CANCER SCREENING 12/13/2012 HASKINS DO MOMO K V76.2 CERVICAL CANCER SCREENING (PAP SMEAR) 12/13/2012 MARJ GRAY APRN V25.09 CONTRACEPTIVE COUNSELING - GENERAL 12/13/2012 GRAYMARIANA GLEASONMARJ Jefferson V73.81 HPV SCREENING 12/13/2012 MARINA GLEASONMARJ Jefferson V74.5 STD SCREEN 12/13/2012 MARINA GLEASONMARJ Jefferson V76.10 BREAST CANCER SCREENING 12/13/2012 MARINA GLEASONMARJ Jefferson V76.2 CERVICAL CANCER SCREENING (PAP SMEAR) 12/13/2012 CARLI MENDOZA APRN ANTOINETTE N V25.09 CONTRACEPTIVE COUNSELING - GENERAL 12/13/2012 CARLI MENDOZA APRN ANTOINETTE N V73.81 HPV SCREENING 12/13/2012 CARLI MENDOZA APRN ANTOINETTE N V74.5 STD SCREEN 12/13/2012 CARLI MENDOZA APRN ANTOINETTE N V76.10 BREAST CANCER SCREENING 12/13/2012 CARLI MENDOZA APRN ANTOINETTE N V76.2 CERVICAL CANCER SCREENING (PAP SMEAR) 12/13/2012 CARLI MENDOZA APRN ANTOINETTE N V25.09 CONTRACEPTIVE COUNSELING - GENERAL 12/13/2012 CARLI MENDOZA APRN ANTOINETTE N V73.81 HPV SCREENING 12/13/2012 CARLI MENDOZA APRN, ANTOINETTE N V74.5 STD SCREEN 12/13/2012 RAND MASTERS APRNCY N V76.10 BREAST CANCER SCREENING 12/13/2012 CARLI MENDOZA APRN, ANTOINETTE N V76.2 CERVICAL CANCER SCREENING (PAP SMEAR) 12/13/2012 DIVINE FRANCO MOMO K V25.09 CONTRACEPTIVE COUNSELING - GENERAL 12/13/2012 VIELKA HASKINS DOA K V73.81 HPV SCREENING 12/13/2012 HASKINS DO MOMO K V74.5 STD SCREEN 12/13/2012 HASKINS DO MOMO K V76.10 BREAST CANCER SCREENING 12/13/2012 HASKINS DO MOMO K V76.2 CERVICAL CANCER SCREENING (PAP SMEAR) 12/13/2012 HASKINS DO MOMO K V25.09 CONTRACEPTIVE COUNSELING - GENERAL 12/13/2012 HASKINS DO MOMO K V73.81 HPV SCREENING 12/13/2012 HSAKINS DO MOMO K V74.5 STD SCREEN 12/13/2012 HASKINS DO MOMO K V76.10 BREAST CANCER SCREENING 12/13/2012 HASKINS DO MOMO K V76.2 CERVICAL CANCER SCREENING (PAP SMEAR) 12/13/2012 RICH JUSTICE MD V25.09 CONTRACEPTIVE COUNSELING - GENERAL 12/13/2012 RICH JUSTICE MD V73.81 HPV SCREENING 12/13/2012 RICH JUSTICE MD V74.5 STD SCREEN 12/13/2012 RICH JUSTICE MD V76.10 BREAST CANCER SCREENING 12/13/2012 RICH JUSTICE MD V76.2 CERVICAL CANCER SCREENING (PAP SMEAR) 12/27/2012 MOMO HASKINS DO K 461.8 OTHER ACUTE SINUSITIS 12/27/2012 VIELKA HASKINS DOA K 461.8 OTHER ACUTE SINUSITIS 12/27/2012 VIELKA HASKINS DOA K 461.8 OTHER ACUTE SINUSITIS 12/27/2012 AYANNA GUTIERREZ APRN A 461.8 OTHER ACUTE SINUSITIS 12/27/2012 VIELKA HASKINS DOA K 461.8 OTHER ACUTE SINUSITIS 12/27/2012 VIELKA HASKINS DOA K 461.8 OTHER ACUTE SINUSITIS 12/27/2012 MARJ GRAY APRN 461.8 OTHER ACUTE SINUSITIS 12/27/2012 RAND MASTERS APRNCY N 461.8 OTHER ACUTE SINUSITIS 12/27/2012 CARLI MENDOZA APRN ANTOINETTE N 461.8 OTHER ACUTE SINUSITIS 12/27/2012 VIELKA HASKINS DOA K 461.8 OTHER ACUTE SINUSITIS 12/27/2012 VIELKA HASKINS DOA K 461.8 OTHER ACUTE SINUSITIS 12/27/2012 RICH JUSTICE MD 461.8 OTHER ACUTE SINUSITIS 01/11/2013 VIELKA HASKINS DOA K V25.11 IUD INSERTION 01/11/2013 VIELKA HASKINS DOA K V25.11 IUD INSERTION 01/11/2013 MATT REMY AYANNA A V25.11 IUD INSERTION 01/11/2013 VIELKA HASKINS DOA K V25.11 IUD INSERTION 01/11/2013 VIELKA HASKINS DOA K V25.11 IUD INSERTION 01/11/2013 MARJ GRAY APRN V25.11 IUD INSERTION 01/11/2013 RAND MASTERS APRNCY N V25.11 IUD INSERTION 01/11/2013 ANTOINETTE MASTERS APRN N V25.11 IUD INSERTION 01/11/2013 MOMO HASKINS DO K V25.11 IUD INSERTION 01/11/2013 VIELKA HASKINS DOA K V25.11 IUD INSERTION 01/11/2013 RICH JUSTICE MD V25.11 IUD INSERTION 02/09/2013 AYANNA GUTIERREZ APRN V25.42 CONTRACEPTION SURVEILLANCE (IUD) 02/09/2013 MOMO HASKINS DO K V25.42 CONTRACEPTION SURVEILLANCE (IUD) 02/09/2013 MOMO HASKINS DO K V25.42 CONTRACEPTION SURVEILLANCE (IUD) 02/09/2013 MARJ GRAY APRN V25.42 CONTRACEPTION SURVEILLANCE (IUD) 02/09/2013 ANTOINETTE MASTERS APRN V25.42 CONTRACEPTION SURVEILLANCE (IUD ) 02/09/2013 ANTOINETTE MASTERS APRN N V25.42 CONTRACEPTION SURVEILLANCE (IUD ) 02/09/2013 MOMO HASKINS DO K V25.42 CONTRACEPTION SURVEILLANCE (IUD) 02/09/2013 MOMO HASKINS DO K V25.42 CONTRACEPTION SURVEILLANCE (IUD) 02/09/2013 RICH JUSTICE MD V25.42 CONTRACEPTION SURVEILLANCE (IUD) 04/29/2013 VIELKA HASKINS DOA K 305.1 NICOTINE DEPENDENCE - CONTINUOUS 04/29/2013 DIVINE FRANCO MOMO K 356.9 POLYNEUROPATHY 04/29/2013 DIVINE FRANCO MOMO K 401.1 ESSENTIAL HYPERTENSION BENIGN 04/29/2013 DIVINE FRANCO MOMO K V65.42 Anticipatory Guidance: Tobacco Use 04/29/2013 VIELKA HASKINS DOA K 305.1 NICOTINE DEPENDENCE - CONTINUOUS 04/29/2013 DIVINE FRANCO MOMO K 356.9 POLYNEUROPATHY 04/29/2013 DIVINE FRANCO MOMO K 401.1 ESSENTIAL HYPERTENSION BENIGN 04/29/2013 DIVINE FRANCO MOMO K V65.42 Anticipatory Guidance: Tobacco Use 04/29/2013 MARJ GRAY APRN 305.1 NICOTINE DEPENDENCE - CONTINUOUS 04/29/2013 MARJ GRAY APRN 356.9 POLYNEUROPATHY 04/29/2013 MARJ GRAY APRN 401.1 ESSENTIAL HYPERTENSION BENIGN 04/29/2013 MARJ GRAY APRN V65.42 Anticipatory Guidance: Tobacco Use 04/29/2013 BOYCEBRENDA MENDOZA APRLi ANTOINETTE N 305.1 NICOTINE DEPENDENCE - CONTINUOUS 04/29/2013 CARLI MENDOZA APRLi ANTOINETTE N 356.9 POLYNEUROPATHY 04/29/2013 CARLI MENDOZA APRLi ANTOINETTE N 401.1 ESSENTIAL HYPERTENSION BENIGN 04/29/2013 CARLI MENDOZA APRLi ANTOIENTTE N V65.42 Anticipatory Guidance: Tobacco Use 04/29/2013 CARLI MENDOZA APRLi ANTOINETTE N 305.1 NICOTINE DEPENDENCE - CONTINUOUS 04/29/2013 CARLI MENDOZA APRLi ANTOINETTE N 356.9 POLYNEUROPATHY 04/29/2013 CARLI MENDOZA APRLi ANTOINETTE N 401.1 ESSENTIAL HYPERTENSION BENIGN 04/29/2013 CARLI MENDOZA APRLi ANTOINETTE N V65.42 Anticipatory Guidance: Tobacco Use 04/29/2013 HASKINS DO, MOMO K 305.1 NICOTINE DEPENDENCE - CONTINUOUS 04/29/2013 HASKINS DO, MOMO K 356.9 POLYNEUROPATHY 04/29/2013 HASKINS DO, MOMO K 401.1 ESSENTIAL HYPERTENSION BENIGN 04/29/2013 HASKINS DO, MOMO K V65.42 Anticipatory Guidance: Tobacco Use 04/29/2013 HASKINS DO, MOMO K 305.1 NICOTINE DEPENDENCE - CONTINUOUS 04/29/2013 HASKINS DO, MOMO K 356.9 POLYNEUROPATHY 04/29/2013 HASKINS DO, MOMO K 401.1 ESSENTIAL HYPERTENSION BENIGN 04/29/2013 HASKINS DO, MOMO K V65.42 Anticipatory Guidance: Tobacco Use 04/29/2013 RICH JUSTICE MD 305.1 NICOTINE DEPENDENCE - CONTINUOUS 04/29/2013 RICH JUSTIEC MD 356.9 POLYNEUROPATHY 04/29/2013 RICH JUSTICE MD 401.1 ESSENTIAL HYPERTENSION BENIGN 04/29/2013 RICH JUSTICE MD V65.42 Anticipatory Guidance: Tobacco Use 07/04/2013 CARLI MORGANISAMAR 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 HELPERANTOINETTE [place] N 477.9 ALLERGIC RHINITIS CAUSE UNSPECIFIED 07/04/2013 CARLI MORGANISAMAR 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 HELPERANTOINETTE [place] N 478.19 OTHER DISEASES OF NASAL CAVITY AND SINUSES 07/04/2013 CARLI MORGANISAMAR 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 HELPERANT[employer]INETTE [place] N 784.42 DYSPHONIA 07/04/2013 CARLI MORGANISAMAR 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 HELPERANTOINETTE [place] N V06.1 TDAP DX 07/04/2013 BOYCE CATHYANTOINETTE PENN APRN N 477.9 ALLERGIC RHINITIS CAUSE UNSPECIFIED 07/04/2013 CARLI MENDOZA APRN, ANTOINETTE N 478.19 OTHER DISEASES OF NASAL CAVITY AND SINUSES 07/04/2013 CARLI MENDOZA APRN, ANTOINETTE N 784.42 DYSPHONIA 07/04/2013 CARLI MENDOZA APRN, ANTOINETTE N V06.1 TDAP DX 07/04/2013 HASKINS DO, MOMO K 477.9 ALLERGIC RHINITIS CAUSE UNSPECIFIED 07/04/2013 HASKINS DO, MOMO K 478.19 OTHER DISEASES OF NASAL CAVITY AND SINUSES 07/04/2013 HASKINS DO, MOMO K 784.42 DYSPHONIA 07/04/2013 HASKINS DO, MOMO K V06.1 TDAP DX 07/04/2013 HASKINS DO, MOMO K 477.9 ALLERGIC RHINITIS CAUSE UNSPECIFIED 07/04/2013 HASKINS DO, MOMO K 478.19 OTHER DISEASES OF NASAL CAVITY AND SINUSES 07/04/2013 HASKINS DO, MOMO K 784.42 DYSPHONIA 07/04/2013 HASKINS DO MOMO K V06.1 TDAP DX 07/04/2013 RICH JUSTICE MD 477.9 ALLERGIC RHINITIS CAUSE UNSPECIFIED 07/04/2013 RICH JUSTICE MD 478.19 OTHER DISEASES OF NASAL CAVITY AND SINUSES 07/04/2013 RICH JUSTICE MD 784.42 DYSPHONIA 07/04/2013 RICH JUSTICE MD V06.1 TDAP DX 07/11/2013 CARLI MENDOZA APRN, ANTOINETTE N 719.44 PAIN IN JOINT INVOLVING HAND 07/11/2013 VIELKA HASKINS DOA K 719.44 PAIN IN JOINT INVOLVING HAND 07/11/2013 VIELKA HASKINS DOA K 719.44 PAIN IN JOINT INVOLVING HAND 07/11/2013 RICH JUSTICE MD 719.44 PAIN IN JOINT INVOLVING HAND 01/03/2014 VIELKA HASKINS DOA K 305.1 current smoker 01/03/2014 VIELKA HASKINS DOA K 346.90 MIGRAINE UNSPECIFIED WITHOUT MENTION OF INTRACTABLE MIGRAINE WITHOUT MENTION OF STATUS MIGRAINOSUS 01/03/2014 VIELKA HASKINS DOA K 443.9 PERIPHERAL VASCULAR DISEASE UNSPECIFIED 01/03/2014 DIVINE FRANCO MOMO K 719.43 PAIN IN JOINT INVOLVING FOREARM 01/03/2014 DIVINE FRANCO MOMO K 782.0 DISTURBANCE OF SKIN SENSATION 01/03/2014 MOMO HASKINS DO 305.1 current smoker 01/03/2014 MOMO HASKINS DO 346.90 MIGRAINE UNSPECIFIED WITHOUT MENTION OF INTRACTABLE MIGRAINE WITHOUT MENTION OF STATUS MIGRAINOSUS 01/03/2014 MOMO HASKINS DO 443.9 PERIPHERAL VASCULAR DISEASE UNSPECIFIED 01/03/2014 MOMO HASKINS DO 719.43 PAIN IN JOINT INVOLVING FOREARM 01/03/2014 MOMO HASKINS DO 782.0 DISTURBANCE OF SKIN SENSATION 01/03/2014 RICH JUSTICE MD 305.1 current smoker 01/03/2014 RICH JUSTICE MD 346.90 MIGRAINE UNSPECIFIED WITHOUT MENTION OF INTRACTABLE MIGRAINE WITHOUT MENTION OF STATUS MIGRAINOSUS 01/03/2014 RICH JUSTICE MD 443.9 PERIPHERAL VASCULAR DISEASE UNSPECIFIED 01/03/2014 RICH JUSTICE MD 719.43 PAIN IN JOINT INVOLVING FOREARM 01/03/2014 RICH JUSTICE MD 782.0 DISTURBANCE OF SKIN SENSATION 03/30/2014 RICH JUSTICE MD 784.91 POSTNASAL DRIP Procedures Code Description Performed By Performed On BLOOD PRESSURE CHECK 10/14/2012 14982 ROUTINE VENIPUNCTURE 10/14/2012 25285 MICRO ALBUMIN-IN HOUSE 10/14/2012 48461 CMP 10/14/2012 34169 LIPID PANEL 10/14 09460 A1C (RML) 2012 34093 NO CHARGE 2012 21546 GC/CHLAM URINE (STATE) 12/06/2012 11370 ROUTINE VENIPUNCTURE 12/13/2012 29324 URINE TEST (IN-HOUSE) 12/13/2012 94774 TRICHOMONAS (IN-HOUSE) 12/13/2012 66130 MAMMOGRAM, SCREENING 12/13/2012 15643 SYPHILIS TEST 75235 HIV ANTIBODIES (RML) 12/13/2012 36594 CULTURE UROGENITAL 12/13/2012 84890 PAP SMEAR 2012 Q0091 PAP SMEAR OBTAIN SMEAR 12/13/2012 64081 IUD INSERTION 01/2013 J7302 LEVONORGESTREL IU CONTRACEPT 01/11/2013 70465 URINE TEST (IN-HOUSE) 01/11/2013 BLOOD PRESSURE CHECK 05/06/2013 BLOOD PRESSURE CHECK 06/27/2013 02322 THERAPUTIC INJ SQ/IM 01/03/2014 J1885 TORADOL INJ 01/03 46689 XRAY WRIST RIGHT COMP MIN 3 VIEWS 01/03/2014 62425 BONILLA 01/03/2014 24216 ROUTINE VENIPUNCTURE 01/10/2014 29743 CMP 01/10/2014 72061 LIPID PANEL 01/10 34790 VIT B 12 2013 09864 CBC 01/10/2014 THYANA THYROID ANALYZER 01/10/2014 Results Encounters ACCT No. Visit Date/Time Discharge Status Pt. Type Provider Facility Loc./Unit Complaint [id number] 03/30/2014 08:46:00 03/30/2014 23: 59:59 CLS Outpatient RICH JUSTICE MD [id number] 01/10/2014 08:16:00 01/10/2014 23: 59:59 CLS Outpatient MOMO HASKINS DO [id number] 01/03/2014 11:51:00 01/03/2014 23: 59:59 CLS Outpatient MOMO HASKINS DO [id number] 07/11/2013 09:30:00 07/11/2013 23: 59:59 CLS Outpatient ANTOINETTE MASTERS APRN [id number] 07/04/2013 15:10:00 07/04/2013 23: 59:59 CLS Outpatient ANTOINETTE MASTERS APRN [id number] 06/27/2013 12:26:00 06/27/2013 23: 59:59 CLS Outpatient MARJ GRAY APRN [id number] 05/06/2013 14:12:00 05/06/2013 23: 59:59 CLS Outpatient MOMO HASKINS DO [id number] 04/29/2013 10:10:00 04/29/2013 23: 59:59 CLS Outpatient MOMO HASKINS DO [id number] 02/09/2013 10:47:00 02/09/2013 23: 59:59 CLS Outpatient AYANNA GUTIERREZ APRN [id number] 01/24/2013 09:13:00 01/24/2013 23: 59:59 CLS Outpatient MOMO HASKINS DO [id number] 01/11/2013 07:50:00 01/11/2013 23: 59:59 CLS Outpatient MOMO HASKINS DO [id number] 12/27/2012 11:31:00 12/27/2012 23: 59:59 CLS Outpatient DIVINE FRANCOMOMO Sonal [id number] 12/13/2012 09:13:00 12/13/2012 23: 59:59 CLS Outpatient AYANNA GUTIERREZ APRN [id number] 12/01/2012 15:24:00 12/01/2012 23: 59:59 CLS Outpatient ANTOINETTE MASTERS APRN Li [id number] 11/24/2012 10:49:00 11/24/2012 23: 59:59 CLS Outpatient POPEYE COOL APRN [id number] 01/19/2012 07:52:00 01/19/2012 23: 59:59 CLS Outpatient CHERELLE NICOLE DDS [id number] 10/14/2012 07:44:00 Document Registration [id number] 08/09/2012 11:39:00 Document Registration [id number] 07/08/2012 11:25:00 Document Registration
[2017-02-09] MEDS ORDERED: CETI10TA17 PO (09:33)
[2017-02-09] MEDS ORDERED: MONT10TA24 PO (09:33)
[2017-02-09] MEDS ORDERED: ONDA8TAB13 PO (09:33)
[2017-02-09] MEDS ORDERED: DIPH1TAB25 PO (09:33)
[2017-02-09] MEDS ORDERED: LISI-594 PO (09:33)
[2017-02-09] MEDS ORDERED: BUT/APAP/CAF (09:33)
[2017-02-09] MEDS ORDERED: HYDR12.5 PO (09:33)
[2017-02-09] MEDS ORDERED: AMIT50TA3 PO (09:33)
[2017-02-09] MEDS ORDERED: NS IV 1000 ML 1,000 ML IV STA (09:47)
[2017-02-09 09:53] LABS: BASOPHILS # (AUTO) 0.1 10^3/uL (0.0-0.1); BASOPHILS % (AUTO) 1 % (0-10); EOSINOPHILS # (AUTO) 0.2 10^3/uL (0.0-0.3); EOSINOPHILS % (AUTO) 3 % (0-10); LYMPHOCYTES # (AUTO) 1.6 X 10^3 (1.0-4.0); LYMPHOCYTES % (AUTO) 22 % (12-44); MEAN CORPUSCULAR HEMOGLOBIN 30 PG (25-34); MEAN CORPUSCULAR HGB CONC 35 G/DL (32-36); MEAN CORPUSCULAR VOLUME 86 FL (80-99); MEAN PLATELET VOLUME 9.8 FL (7.4-10.4); MONOCYTES # (AUTO) 0.8 X 10^3 (0.0-1.0); MONOCYTES % (AUTO) 10 % (0-12); NEUTROPHILS # (AUTO) 4.7 X 10^3 (1.8-7.8); NEUTROPHILS % (AUTO) 64 % (42-75); PLATELET COUNT 279 10^3/uL (130-400); RED BLOOD COUNT 4.61 10^6/uL (4.35-5.85); RED CELL DISTRIBUTION WIDTH 12.5 % (10.0-14.5); WHITE BLOOD COUNT 7.4 10^3/uL (4.3-11.0)
[2017-02-09] MEDS ORDERED: HYOSCYAMINE 0.125 MG (LEVSIN) TAB SL ONE (10:00)
[2017-02-09] MEDS ORDERED: ONDANSETRON 4 MG/2 ML (SDV) Z0FRAN IVP ONE (10:00)
[2017-02-09 10:07] LABS: ALANINE AMINOTRANSFERASE 48 U/L (0-55); ALBUMIN 3.7 GM/DL (3.2-4.5); ANION GAP 11 MMOL/L (5-14); ASPARTATE AMINO TRANSFERASE 20 U/L (5-34); BILIRUBIN,TOTAL 0.4 MG/DL (0.1-1.0); BLOOD UREA NITROGEN 19 MG/DL (7-18); BUN/CREATININE RATIO 20; CALCIUM 9.2 MG/DL (8.5-10.1); CARBON DIOXIDE 30 MMOL/L (21-32); CHLORIDE 97 MMOL/L (98-107); CREATININE SERUM 0.96 MG/DL (0.60-1.30); GFR ESTIMATED > 60; GLUCOSE 175 MG/DL (70-105); LIPASE 207 U/L (8-78); MAGNESIUM 1.8 MG/DL (1.8-2.4); POTASSIUM 2.7 MMOL/L (3.6-5.0); SODIUM 138 MMOL/L (135-145)
--- NOTE | 2017-02-09 10:12 | ED GI ---
General Chief Complaint: Abdominal/GI Problems Stated Complaint: HEADACHE DIARRHEA/CRAMPS FEVER Nursing Triage Note: PT STATES MID ABD PAIN, NAUSEA AND DIARRHEA FOR A WEEK, WAS SEEN BY ON THURSDAY, GIVEN A STEROID AND TORADOL, STILL HAVING DIARRHEA, 6 TIMES IN THE LAST 24 HRS. IBUPROFEN 800 MG FOR FEVER AT 0445 THIS A.M. Sepsis Screen: Possible Sepsis Risk Source of Information: Patient Exam Limitations: No Limitations History of Present Illness Time Seen By Provider: 09:55 Initial Comments Here with report of diarrhea for the last week. This is associated with nausea and some abdominal discomfort. Started with vomiting and diarrheal illness and not just diarrhea. States that she feels that she was dehydrated. Seen her provider on Thursday instructed her to come to the ER if things were better today. She states they are not better and she has presented. Afebrile currently. She is able to take her medicines. Timing/Duration: 1 Week, Constant Severity/Quality: Mild, Moderate, Cramping Location: Generalized Abdomen Radiation: No Radiation Activities at Onset: None Modifying Factors: Worsens With Eating, Improves With Resting Associated Symptoms: No Back Pain, No Chest Pain, No Fever/Chills, Fatigue, Nausea/Vomiting, No Shortness of Air, No Weakness Allergies and Home Medications Allergies Coded Allergies: morphine (Verified Allergy, Unknown, 02/09/17) Home Medications Amitriptyline HCl 50 Mg Tablet, 50 MG PO HS, (Reported) Cetirizine HCl 10 Mg Tablet, 10 MG PO, (Reported) Diphenoxylate HCl/Atropine 1 Each Tablet, 1 EACH PO, (Reported) Hydrochlorothiazide 12.5 Mg Capsule, 12.5 MG PO DAILY, (Reported) Lisinopril 5 Mg Tablet, 5 MG PO DAILY, (Reported) Montelukast Sodium 10 Mg Tablet, 10 MG PO DAILY, (Reported) Ondansetron 8 Mg Tab.rapdis, 8 MG PO for ABDOMINAL PAIN, (Reported) [But/Apap/Caf] , (Reported) Review of Systems Constitutional: see HPI, No chills, No fever EENTM: No Symptoms Reported Respiratory: No Symptoms Reported Cardiovascular: No Symptoms Reported Gastrointestinal: See HPI, Abdominal Pain, Diarrhea, Nausea Genitourinary: No Symptoms Reported Musculoskeletal: no symptoms reported All Other Systems Reviewed Negative Unless Noted: Yes Past Dfteoiz-Ohwdyh-Ownqwj Hx Patient Social History Alcohol Use: Rarely Uses Alcohol Beverage of Choice: Whiskey Recreational Drug Use: No Smoking Status: Current Everyday Smoker Type Used: Cigarettes Recent Foreign Travel: No Contact w/Someone Who Travel: No Recent Infectious Disease Expo: No Recent Hopitalizations: No Seasonal Allergies Seasonal Allergies: Yes Surgeries History of Surgeries: Yes Surgeries: Adenoidectomy, Gallbladder, Tonsillectomy Respiratory History of Respiratory Disorde: Yes (OCCATIONAL BRONCHITIS) Cardiovascular History of Cardiac Disorders: Yes Cardiac Disorders: Hypertension Neurological History of Neurological Disord: Yes Neurological Disorders: Headaches /Migraines 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 Genitourinary History of Genitourinary Disor: No Gastrointestinal History of Gastrointestinal Di: No Musculoskeletal History of Musculoskeletal Dis: No Endocrine History of Endocrine Disorders: No HEENT History of 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 Cancer History of Cancer: No Psychosocial History of Psychiatric Problem: No Integumentary History of Skin or Integumenta: No Reviewed Nursing Assessment Reviewed/Agree w Nursing PMH: Yes Family Medical History Significant Family History: No Pertinent Family Hx Physical Exam Vital Signs VS - Last 72 Hours, by Label 02/09/17 09:19 Temp 97.5 Pulse 92 Resp 20 B/P (MAP) 109/84 (92) Pulse Ox 95 O2 Delivery Room Air Capillary Refill : Less Than 3 Seconds General Appearance: WD/WN, no apparent distress HEENT: PERRL/EOMI, pharynx normal Neck: full range of motion, supple, normal inspection Respiratory: lungs clear, normal breath sounds Cardiovascular: regular rate, rhythm, no murmur Gastrointestinal: soft, tenderness (mild epigastric region) Extremities: non-tender, normal inspection Back: normal inspection, no CVA tenderness, no vertebral tenderness Neurologic/Psychiatric: alert, normal mood/affect, oriented x 3 Skin: normal color, warm/dry Progress/Results/Core Measures Results/Orders Lab Results Laboratory Tests Test 02/09/17 09:40 02/09/17 12:05 Range/Units White Blood Count 7.4 4.3-11.0 10^3/uL Red Blood Count 4.61 4.35-5.85 10^6/uL Hemoglobin 13.8 11.5-16.0 G/DL Hematocrit 40 35-52 % Mean Corpuscular Volume 86 80-99 FL Mean Corpuscular Hemoglobin 30 25-34 PG Mean Corpuscular Hemoglobin Concent 35 32-36 G/DL Red Cell Distribution Width 12.5 10.0-14.5 % Platelet Count 279 130-400 10^3/uL Mean Platelet Volume 9.8 7.4-10.4 FL Neutrophils (%) (Auto) 64 42-75 % Lymphocytes (%) (Auto) 22 12-44 % Monocytes (%) (Auto) 10 0-12 % Eosinophils (%) (Auto) 3 0-10 % Basophils (%) (Auto) 1 0-10 % Neutrophils # (Auto) 4.7 1.8-7.8 X 10^3 Lymphocytes # (Auto) 1.6 1.0-4.0 X 10^3 Monocytes # (Auto) 0.8 0.0-1.0 X 10^3 Eosinophils # (Auto) 0.2 0.0-0.3 10^3/uL Basophils # (Auto) 0.1 0.0-0.1 10^3/uL Sodium Level 138 135-145 MMOL/L Potassium Level 2.7 L 3.6-5.0 MMOL/L Chloride Level 97 L 98-107 MMOL/L Carbon Dioxide Level 30 21-32 MMOL/L Anion Gap 11 5-14 MMOL/L Blood Urea Nitrogen 19 H 7-18 MG/DL Creatinine 0.96 0.60-1.30 MG/DL Estimat Glomerular Filtration Rate > 60 BUN/Creatinine Ratio 20 Glucose Level 175 H 70-105 MG/DL Calcium Level 9.2 8.5-10.1 MG/DL Magnesium Level 1.8 1.8-2.4 MG/DL Total Bilirubin 0.4 0.1-1.0 MG/DL Aspartate Amino Transf (AST/SGOT) 20 5-34 U/L Alanine Aminotransferase (ALT/SGPT) 48 0-55 U/L Alkaline Phosphatase 63 40-136 U/L Total Protein 7.0 6.4-8.2 GM/DL Albumin 3.7 3.2-4.5 GM/DL Lipase 207 H 8-78 U/L Urine Color YELLOW Urine Clarity CLEAR Urine pH 6 5-9 Urine Specific [place] 1.015 L 1.016-1.022 Urine Protein 1+ H NEGATIVE Urine Glucose (UA) NEGATIVE NEGATIVE Urine Ketones NEGATIVE NEGATIVE Urine Nitrite NEGATIVE NEGATIVE Urine Bilirubin NEGATIVE NEGATIVE Urine Urobilinogen NORMAL NORMAL MG/DL Urine Leukocyte Esterase NEGATIVE NEGATIVE Urine RBC (Auto) 2+ H NEGATIVE Urine RBC NONE /HPF Urine WBC 2-5 /HPF Urine Squamous Epithelial Cells 5-10 /HPF Urine Crystals NONE /LPF Urine Bacteria FEW H /HPF Urine Casts NONE /LPF Urine Mucus NEGATIVE /LPF Urine Culture Indicated YES My Orders Orders - ROLAND MORAN MD Cbc With Automated Diff (02/09/17 09:47) Comprehensive Metabolic Panel (02/09/17 09:47) Lipase (02/09/17 09:47) Magnesium (02/09/17 09:47) Ua Culture If Indicated (02/09/17 09:47) Ondansetron Injection (Zofran Injectio (02/09/17 10:00) Ns Iv 1000 Ml (Sodium Chloride 0.9%) (02/09/17 09:47) Hyoscyamine Sl Tablet (Levsin Sl Tablet) (02/09/17 10:00) Ns Iv 1000 Ml (Sodium Chloride 0.9%) (02/09/17 11:11) Urine Culture (02/09/17 12:05) Potassium Chloride (Tablet) (Klor Con Ta (02/09/17 13:00) Medications Given in ED Current Medications Medications Dose Ordered Sig/[place] Route Start Time Stop Time Status Last Admin Dose Admin Hyoscyamine Sulfate 0.125 mg ONCE ONCE SL 02/09/17 10:00 02/09/17 10:01 DC 02/09/17 10:02 0.125 MG Ondansetron HCl 4 mg ONCE ONCE IVP 02/09/17 10:00 02/09/17 10:01 DC 02/09/17 10:02 4 MG Potassium Chloride 40 meq ONCE ONCE PO 02/09/17 13:00 02/09/17 13:01 DC 02/09/17 12:58 40 MEQ Sodium Chloride 1,000 ml @ 0 mls/hr Q0M ONCE IV 02/09/17 11:11 02/09/17 11:13 DC 02/09/17 11:22 1,000 MLS/HR Vital Signs/I&O Vital Sign - Last 12Hours 02/09/17 09:19 Temp 97.5 Pulse 92 Resp 20 B/P (MAP) 109/84 (92) Pulse Ox 95 O2 Delivery Room Air Blood Pressure Mean: 92 Progress Note : Progress Note Seen and evaluated. IV, labs and UA ordered. Normal saline 1 L bolus. Less than 0.125 mg by mouth and Zofran 4 mg IV ordered. Monitor patient. 1300: Repeat normal saline 1 L bolus was given and urine studies obtained. Labs reviewed. Hypokalemia noted. Potassium 40 mEq by mouth given. Overall no findings concerning that would require imaging at this point. Patient instructed on increasing fluids and electrolyte containing foods and fluids. Discharged home with return precautions. Patient verbalize understanding instructions and agreement with plan. Departure Impression Impression: Primary Impression: Hypokalemia Additional Impressions: Dehydration Diarrhea Qualified Codes: R19.7 - Diarrhea, unspecified Disposition: HOME, SELF-CARE Condition: Improved Departure-Patient Inst. Decision time for Depature: 13:09 [facility] Primary Care Physician Patient Instructions: Acute Abdomen (Belly Pain), Adult (DC), Dehydration, Adult (DC), Diarrhea in Adolescents and Adults, Hypokalemia (DC) Add. Discharge Instructions: All discharge instructions reviewed with patient and/or family. Voiced understanding. Drink plenty of fluids. You should increase the electronic containing fluids in your diet including Gatorade or similar. You may use half-strength Gatorade. Clear liquid diet for 24 hours and then advance as tolerated. You should use probiotics and may get this as capsules or and yogurt. Follow-up with your Dr. in a few days for recheck. Return for worse pain, fever, vomiting , weakness, breathing problems or other concerns as needed. You should have your potassium rechecked within one week and you can do this at the clinic. Scripts Ondansetron (Ondansetron Odt) 4 Mg Tab.rapdis 4 MG PO Q6H Y for NAUSEA/VOMITING, #8 TAB 0 Refills Prov: ROLAND MORAN MD 02/09/17 Copy Copies To 1: GALO VALDEZ MD, TIMOTHY D MD Feb 09, 2017 10:11
[2017-02-09] MEDS ORDERED: NS IV 1000 ML 1,000 ML IV ONE (11:11)
[2017-02-09 12:18] LABS: BILIRUBIN,URINE NEGATIVE (NEGATIVE); KETONES,URINE NEGATIVE (NEGATIVE); LEUKOCYTE ESTERASE ,URINE NEGATIVE (NEGATIVE); NITRITE,URINE NEGATIVE (NEGATIVE); PH,URINE 6 (5-9); PROTEIN,URINE 1+ (NEGATIVE); UROBILINOGEN,URINE NORMAL (NORMAL)
[2017-02-09] MEDS ORDERED: KCL 10 MEQ TAB (MICRO K) PO ONE (13:00)
[2017-02-09] MEDS ORDERED: ONDA4TAB11 PO (13:12)
[2017-02-09 13:18] VITALS: BP 134/90
== END 2017-02-09 13:17 | disposition home or self-care (01) ==
LOC: ER 09:08
DX: E87.6 Hypokalemia (principal); E86.0 Dehydration; R19.7 Diarrhea, unspecified; F17.210 Nicotine dependence, cigarettes, uncomplicated; I10 Essential (primary) hypertension; G43.909 Migraine, unspecified, not intractable, without status migrainosus; Z90.89 Acquired absence of other organs
CPT/HCPCS: 36415; 80053; 81000; 83690; 83735; 85025; 87088

== ENCOUNTER 2017-02-24 23:07 | Emergency (ER) | payer MEDICAID ==
[~2017-02-24] VITALS: Ht 167.6 cm; Wt 98.4 kg
[~2017-02-24 23:07] MED LIST: AMIT50TA3 PO; BUT/APAP/CAF; CETI10TA17 PO; DIPH1TAB25 PO; HYDR12.5 PO; LISI-594 PO; MONT10TA24 PO; ONDA4TAB11 PO; ONDA8TAB13 PO
--- OUTSIDE RECORDS SUMMARY | 2017-02-24 23:15 | XMS REPORT | Continuity of Care Document ---
Author Author [facility] Address Unknown Phone Unavailable Allergies Active Description Code Type Severity Reaction Onset Reported/Identified Relationship to Patient Clinical Status Yes morphine Drug Allergy 08/20/2011 Yes morphine Drug Allergy N/A N/A 08/20/2011 Medications There is no data. Problems Date Dx Coded Attending Type Code Diagnosis Diagnosed By 09/18/2007 CHERELLE NICOLE DDS 465.9 UPPER RESPIRATORY INFECTION 09/18/2007 465.9 UPPER RESPIRATORY INFECTION 09/18/2007 465.9 UPPER RESPIRATORY INFECTION 09/18/2007 465.9 UPPER RESPIRATORY INFECTION 09/18/2007 POPEYE COOL APRN 465.9 UPPER RESPIRATORY INFECTION 09/18/2007 CARLI MENDOZA APRN ANTOINETTE N 465.9 UPPER RESPIRATORY INFECTION 09/18/2007 MATTLi REMY AYANNA A 465.9 UPPER RESPIRATORY INFECTION 09/18/2007 HASKINS DO, MOMO K 465.9 UPPER RESPIRATORY INFECTION 09/18/2007 HASKINS DO, MOMO K 465.9 UPPER RESPIRATORY INFECTION 09/18/2007 HASKINS DO, MOMO K 465.9 UPPER RESPIRATORY INFECTION 09/18/2007 MATTJASS REMY AYANNA A 465.9 UPPER RESPIRATORY INFECTION 09/18/2007 HASKINS DO, MOMO K 465.9 UPPER RESPIRATORY INFECTION 09/18/2007 HASKINS DO MOMO K 465.9 UPPER RESPIRATORY INFECTION 09/18/2007 MARJ GRAY APRN 465.9 UPPER RESPIRATORY INFECTION 09/18/2007 CARLI MENDOZA APRN ANTOINETTE N 465.9 UPPER RESPIRATORY INFECTION 09/18/2007 CARLI MENDOZA APRN ANTOINETTE N 465.9 UPPER RESPIRATORY INFECTION 09/18/2007 HASKINS DO MOMO K 465.9 UPPER RESPIRATORY INFECTION 09/18/2007 HASKINS , MOMO K 465.9 UPPER RESPIRATORY INFECTION 09/18/2007 RICH JUSTICE MD 465.9 UPPER RESPIRATORY INFECTION 05/05/2008 CHERELLE NICOLE DDS 401.1 ESSENTIAL HYPERTENSION BENIGN 05/05/2008 BONNIE DDS, CHERELLE Ward 780.6 FEVER 05/05/2008 401.1 ESSENTIAL HYPERTENSION BENIGN 05/05/2008 780.6 FEVER 05/05/2008 401.1 ESSENTIAL HYPERTENSION BENIGN 05/05/2008 780.6 FEVER 05/05/2008 401.1 ESSENTIAL HYPERTENSION BENIGN 05/05/2008 780.6 FEVER 05/05/2008 EATON CALENDER OPERATOR, POPEYE L 401.1 ESSENTIAL HYPERTENSION BENIGN 05/05/2008 EATON CALENDER OPERATOR, POPEYE L 780.6 FEVER 05/05/2008 BOYCE CASHERO CALENDER OPERATOR, ANTOINETTE N 401.1 ESSENTIAL HYPERTENSION BENIGN 05/05/2008 BOYCE CASHERO CALENDER OPERATOR, ANTOINETTE N 780.6 FEVER 05/05/2008 MATT CALENDER OPERATOR, AYANNA A 401.1 ESSENTIAL HYPERTENSION BENIGN 05/05/2008 MATT CALENDER OPERATOR, AYANNA A 780.6 FEVER 05/05/2008 HASKINS DO, MOMO K 401.1 ESSENTIAL HYPERTENSION BENIGN 05/05/2008 HASKINS DO, MOMO K 780.6 FEVER 05/05/2008 HASKINS DO, MOMO K 401.1 ESSENTIAL HYPERTENSION BENIGN 05/05/2008 HASKINS DO, MOMO K 780.6 FEVER 05/05/2008 HASKINS DO, MOMO K 401.1 ESSENTIAL HYPERTENSION BENIGN 05/05/2008 HASKINS DO, MOMO K 780.6 FEVER 05/05/2008 MATT CALENDER OPERATOR, AYANNA A 401.1 ESSENTIAL HYPERTENSION BENIGN 05/05/2008 MATT CALENDER OPERATOR, AYANNA A 780.6 FEVER 05/05/2008 HASKINS DO, MOMO K 401.1 ESSENTIAL HYPERTENSION BENIGN 05/05/2008 HASKINS DO, MOMO K 780.6 FEVER 05/05/2008 HASKINS DO, MOMO K 401.1 ESSENTIAL HYPERTENSION BENIGN 05/05/2008 HASKINS DO, MOMO K 780.6 FEVER 05/05/2008 GRAY CALENDER OPERATOR, MARJ J 401.1 ESSENTIAL HYPERTENSION BENIGN 05/05/2008 GARY CALENDER OPERATOR, MARJ J 780.6 FEVER 05/05/2008 BOYCE CASHERO CALENDER OPERATOR, ANTOINETTE N 401.1 ESSENTIAL HYPERTENSION BENIGN 05/05/2008 BOYCE CASHERO CALENDER OPERATOR, ANTOINETTE N 780.6 FEVER 05/05/2008 BOYCE CASHERO CALENDER OPERATOR, ANTOINETTE N 401.1 ESSENTIAL HYPERTENSION BENIGN 05/05/2008 BOYCE CASHERO CALENDER OPERATOR, ANTOINETTE N 780.6 FEVER 05/05/2008 HASKINS DO, MOMO K 401.1 ESSENTIAL HYPERTENSION BENIGN 05/05/2008 HASKINS DO, MOMO K 780.6 FEVER 05/05/2008 HASKINS DO, MOMO K 401.1 ESSENTIAL HYPERTENSION BENIGN 05/05/2008 HASKINS DO, MOMO K 780.6 FEVER 05/05/2008 VINH DONATO, RICH Zimmer 401.1 ESSENTIAL HYPERTENSION BENIGN 05/05/2008 VINH DONATO, RICH Zimmer 780.6 FEVER 08/20/2011 BONNIE DDS, CHERELLE F [...] SINUSITIS ACUTE 08/20/2011 784.0 HEADACHE 08/20/2011 SILVINA GLEASONNANDRADEPOPEYE L 305.1 NICOTINE DEPENDENCE - CONTINUOUS 08/20/2011 SILVINA GLEASONNANDRADEPOPEYE L 461.9 SINUSITIS ACUTE 08/20/2011 SILVINA GLEASONNANDRADEPOPEYE L 784.0 HEADACHE 08/20/2011 BOYCE CATHYISAMAR CALENDER OPERATOR, ANTOINETTE N 305.1 NICOTINE DEPENDENCE - CONTINUOUS 08/20/2011 CARLI MENDOZA CALENDER OPERATOR, ANTOINETTE N 461.9 SINUSITIS ACUTE 08/20/2011 BOYCE CATHYISAMAR CALENDER OPERATOR, ANTOINETTE N 784.0 HEADACHE 08/20/2011 MATT APRN, AYANNA A 305.1 NICOTINE DEPENDENCE - CONTINUOUS 08/20/2011 MATTJASS REMY, AYANNA A 461.9 SINUSITIS ACUTE 08/20/2011 MATTJASS REMY, AYANNA A 784.0 HEADACHE 08/20/2011 HASKINS DO, [...] DO, MOMO K 784.0 HEADACHE 08/20/2011 MATT CALENDER OPERATOR, AYANNA A 305.1 NICOTINE DEPENDENCE - CONTINUOUS 08/20/2011 MATT CALENDER OPERATOR, AYANNA A 461.9 SINUSITIS ACUTE 08/20/2011 MATT CALENDER OPERATOR, AYANNA A 784.0 HEADACHE 08/20/2011 HASKINS DO, [...] APRN J 784.0 HEADACHE 08/20/2011 BOYCE CASHERO CALENDER OPERATOR, ANTOINETTE N 305.1 NICOTINE DEPENDENCE - CONTINUOUS 08/20/2011 BOYCE CASHERO CALENDER OPERATOR, ANTOINETTE N 461.9 SINUSITIS ACUTE 08/20/2011 BOYCE CASHERO CALENDER OPERATOR, ANTOINETTE N 784.0 HEADACHE 08/20/2011 BOYCE CASHERO CALENDER OPERATOR, ANTOINETTE N 305.1 NICOTINE DEPENDENCE - CONTINUOUS 08/20/2011 BOYCE CASHERO CALENDER OPERATOR, ANTOINETTE N 461.9 SINUSITIS ACUTE 08/20/2011 BOYCE CASHERO CALENDER OPERATOR, ANTOINETTE N 784.0 HEADACHE 08/20/2011 HASKINS DO, [...] ANDRADE COOL APRNSON L 786.2 cough 08/30/2011 BOYCEBRENDA MENDOZA CALENDER OPERATOR, ANTOINETTE N 278.00 OBESITY 08/30/2011 BOYCE CASHERO CALENDER OPERATOR, ANTOINETTE N 786.2 cough 08/30/2011 MATTJASS REMY AYANNA A 278.00 OBESITY 08/30/2011 MATTJASS REMY, AYANNA A 786.2 cough 08/30/2011 HASKINS DO, MOMO K 278.00 OBESITY 08/30/2011 HASKINS DO, MOMO K 786.2 cough 08/30/2011 HASKINS DO, MOMO K 278.00 OBESITY 08/30/2011 HASKINS DO, MOMO K 786.2 cough 08/30/2011 HASKINS DO, MOMO K 278.00 OBESITY 08/30/2011 HASKINS DO, MOMO K 786.2 cough 08/30/2011 MATT REMY, AYANNA A 278.00 OBESITY 08/30/2011 MATTJASS GLEASONN, AYANNA A 786.2 cough 08/30/2011 HASKINS DO, MOMO K 278.00 OBESITY 08/30/2011 HASKINS DO, MOMO K 786.2 cough 08/30/2011 HASKINS DO, MOMO K 278.00 OBESITY 08/30/2011 HASKINS DO, MOMO K 786.2 cough 08/30/2011 GRAYMARIANA GLEASONMARJ Jefferson 278.00 OBESITY 08/30/2011 GRAY CALENDER OPERATOR, MARJ Hamilton 786.2 cough 08/30/2011 BOYCE CATHYERO CALENDER OPERATOR, ANTOINETTE N 278.00 OBESITY 08/30/2011 BOYCE CASHERO CALENDER OPERATOR, ANTOINETTE N 786.2 cough 08/30/2011 BOYCE CASHERO CALENDER OPERATOR, ANTOINETTE N 278.00 OBESITY 08/30/2011 BOYCE CATHYERO CALENDER OPERATOR, ANTOINETTE N 786.2 cough 08/30/2011 HASKINS DO, [...] ACUTE BRONCHITIS 09/05/2011 466.0 ACUTE BRONCHITIS 09/05/2011 EATON CALENDER OPERATOR POPEYE L 466.0 ACUTE BRONCHITIS 09/05/2011 BOYCEBRENDA MENDOZA CALENDER OPERATOR, ANTOINETTE N 466.0 ACUTE BRONCHITIS 09/05/2011 MATT CALENDER OPERATOR, AYANNA A 466.0 ACUTE BRONCHITIS 09/05/2011 HASKINS DO, MOMO K 466.0 ACUTE BRONCHITIS 09/05/2011 HASKINS DO, MOMO K 466.0 ACUTE BRONCHITIS 09/05/2011 HASKINS DO, MOMO K 466.0 ACUTE BRONCHITIS 09/05/2011 MATT CALENDER OPERATOR, AYANNA A 466.0 ACUTE BRONCHITIS 09/05/2011 HASKINS DO, MOMO K 466.0 ACUTE BRONCHITIS 09/05/2011 HASKINS DO, MOMO K 466.0 ACUTE BRONCHITIS 09/05/2011 GRAY CALENDER OPERATORMARJ Jefferson 466.0 ACUTE BRONCHITIS 09/05/2011 CARLI MORGANERO CALENDER OPERATOR, ANTOINETTE N 466.0 ACUTE BRONCHITIS 09/05/2011 BOYCE CASHERO CALENDER OPERATOR, ANTOINETTE N 466.0 ACUTE BRONCHITIS 09/05/2011 HASKINS [...] GRAY APRN 522.5 PERIAPICAL ALVEOLAR ABSCESS 07/08/2012 BOYCEBRENDA MENDOZA APRN, ANTOINETTE N 522.5 PERIAPICAL ALVEOLAR ABSCESS 07/08/2012 [facility], ANTOINETTE N 522.5 PERIAPICAL ALVEOLAR ABSCESS [...] HASKINS DO, MOMO K 521.00 CARIES 08/09/2012 MOLLY GUTIERREZ APRNIDI A 521.00 CARIES 08/09/2012 HASKINS DO, MOMO K 521.00 CARIES 08/09/2012 HASKINS DO, MOMO K 521.00 CARIES 08/09/2012 MARJ GRAY APRN 521.00 CARIES 08/09/2012 BOYCEBRENDA MENDOZA APRN, ANTOINETTE N 521.00 CARIES 08/09/2012 BOYCEBRENDA MENDOZA APRN, ANTOINETTE N 521.00 CARIES 08/09/2012 HASKINS DO, MOMO K 521.00 CARIES 08/09/2012 HASKINS DO, MOMO K 521.00 CARIES 08/09/2012 RICH JUSTICE MD 521.00 CARIES 10/07/2012 780.4 dizziness 10/07/2012 POPEYE COLO APRN 780.4 dizziness 10/07/2012 BOYCEBRENDA MENDOZA APRN, ANTOINETTE N 780.4 dizziness 10/07/2012 MATT REMY, AAYNNA A 780.4 dizziness 10/07/2012 HASKINS DO, MOMO K 780.4 dizziness 10/07/2012 HASKINS DO, MOMO K 780.4 dizziness 10/07/2012 HASKINS DO, MOMO K 780.4 dizziness 10/07/2012 MATT CALENDER OPERATOR, AYANNA A 780.4 dizziness 10/07/2012 HASKINS DO, MOMO K 780.4 dizziness 10/07/2012 HASKINS DO, MOMO K 780.4 dizziness 10/07/2012 MARJ GRAY APRN 780.4 dizziness 10/07/2012 BOYCEBRENDA MENDOZA APRN, ANTOINETTE N 780.4 dizziness 10/07/2012 BOYCEBRENDA MENDOZA APRN, ANTOINETTE N 780.4 dizziness 10/07/2012 HASKINS DO, MOMO K 780.4 dizziness 10/07/2012 HASKINS DO, MOMO K 780.4 dizziness 10/07/2012 RICH JUSTICE MD 780.4 dizziness 11/24/2012 POPEYE COOL APRN 796.2 REACTIVE BP 11/24/2012 BOYCEBRENDA MENDOZA APRN, ANTOINETTE N 796.2 REACTIVE BP 11/24/2012 MATT CALENDER OPERATORMOLLYAYANNA A 796.2 REACTIVE BP 11/24/2012 HASKINS DO, MOMO K 796.2 REACTIVE BP 11/24/2012 HASKINS DO, MOMO K 796.2 REACTIVE BP 11/24/2012 HASKINS DO, MOMO K 796.2 REACTIVE BP 11/24/2012 MATT CALENDER OPERATOR, AYANNA A 796.2 REACTIVE BP 11/24/2012 HASKINS DO, MOMO K 796.2 REACTIVE BP 11/24/2012 HASKINS DO, MOMO K 796.2 REACTIVE BP 11/24/2012 MARINA REMY, MARJ J 796.2 REACTIVE BP 11/24/2012 BOYCE CASHERO CALENDER OPERATOR, ANTOINETTE N 796.2 REACTIVE BP 11/24/2012 BOYCE CASHERO CALENDER OPERATOR, ANTOINETTE N 796.2 REACTIVE BP 11/24/2012 HASKINS DO, MOMO K 796.2 REACTIVE BP 11/24/2012 HASKINS DO, MOMO K 796.2 REACTIVE BP 11/24/2012 VINH DONATO, RICH A 796.2 REACTIVE BP 12/01/2012 BOYCE CASHERO CALENDER OPERATOR, ANTOINETTE N V67.9 UNSPECIFIED FOLLOW-UP EXAMINATION 12/01/2012 BOYCE CASHERO CALENDER OPERATOR, ANTOINETTE N V69.2 HIGH-RISK SEXUAL BEHAVIOR 12/01/2012 MATT CALENDER OPERATOR, AYANNA A V67.9 UNSPECIFIED FOLLOW-UP EXAMINATION 12/01/2012 MATT CALENDER OPERATOR, AYANNA A V69.2 HIGH-RISK SEXUAL BEHAVIOR 12/01/2012 HASKINS DO, MOMO K V67.9 UNSPECIFIED FOLLOW-UP EXAMINATION 12/01/2012 HASKINS DO, MOMO K V69.2 HIGH-RISK SEXUAL BEHAVIOR 12/01/2012 HASKINS DO, MOMO K V67.9 UNSPECIFIED FOLLOW-UP EXAMINATION 12/01/2012 HASKINS DO, MOMO K V69.2 HIGH-RISK SEXUAL BEHAVIOR 12/01/2012 HASKINS DO, MOMO K V67.9 UNSPECIFIED FOLLOW-UP EXAMINATION 12/01/2012 HASKINS DO, MOMO K V69.2 HIGH-RISK SEXUAL BEHAVIOR 12/01/2012 MATT CALENDER OPERATOR, AYANNA A V67.9 UNSPECIFIED FOLLOW-UP EXAMINATION 12/01/2012 MATT CALENDER OPERATOR, AYANNA A V69.2 HIGH-RISK SEXUAL BEHAVIOR 12/01/2012 HASKINS DO, MOMO K V67.9 UNSPECIFIED FOLLOW-UP EXAMINATION 12/01/2012 HASKINS DO, MOMO K V69.2 HIGH-RISK SEXUAL BEHAVIOR 12/01/2012 HASKINS DO, MOMO K V67.9 UNSPECIFIED FOLLOW-UP EXAMINATION 12/01/2012 HASKINS DO MOMO K V69.2 HIGH-RISK SEXUAL BEHAVIOR 12/01/2012 GRAY CALENDER OPERATOR, MARJ Hamilton V67.9 UNSPECIFIED FOLLOW-UP EXAMINATION 12/01/2012 GRAY CALENDER OPERATOR, MARJ J V69.2 HIGH-RISK SEXUAL BEHAVIOR 12/01/2012 BOYCE CASHERO CALENDER OPERATOR, ANTOINETTE N V67.9 UNSPECIFIED FOLLOW-UP EXAMINATION 12/01/2012 BOYCE CASHERO CALENDER OPERATOR, ANTOINETTE N V69.2 HIGH-RISK SEXUAL BEHAVIOR 12/01/2012 BOYCE CASHERO CALENDER OPERATOR, ANTOINETTE N V67.9 UNSPECIFIED FOLLOW-UP EXAMINATION 12/01/2012 BOYCE CASHERO CALENDER OPERATOR, ANTOINETTE N V69.2 HIGH-RISK SEXUAL BEHAVIOR 12/01/2012 HASKINS DO MOMO K V67.9 UNSPECIFIED FOLLOW-UP EXAMINATION 12/01/2012 VIELKA HASKINS DOA K V69.2 HIGH-RISK SEXUAL BEHAVIOR 12/01/2012 DIVINE FRANCO OMMO K V67.9 UNSPECIFIED FOLLOW-UP EXAMINATION 12/01/2012 HASKINS [...] A V76.10 BREAST CANCER SCREENING 12/13/2012 MATT REMY, AYANNA A V76.2 CERVICAL CANCER SCREENING (PAP SMEAR) 12/13/2012 VIELKA HASKINS DOA K V25.09 CONTRACEPTIVE COUNSELING - GENERAL 12/13/2012 HASKINS DO MOMO K V73.81 HPV SCREENING 12/13/2012 HASKINS DO MOMO K V74.5 STD SCREEN 12/13/2012 HASKINS DO MOMO K V76.10 BREAST CANCER SCREENING 12/13/2012 HASKINS DO MOMO K V76.2 CERVICAL CANCER SCREENING (PAP SMEAR) 12/13/2012 HASKINS DO, MOMO K V25.09 CONTRACEPTIVE COUNSELING - GENERAL [...] CERVICAL CANCER SCREENING (PAP SMEAR) 12/13/2012 MATT REMY AYANNA A V25.09 CONTRACEPTIVE COUNSELING - GENERAL 12/13/2012 MATT REMY, AYANNA A V73.81 HPV SCREENING 12/13/2012 MATT CALENDER OPERATOR, AYANNA A V74.5 STD SCREEN 12/13/2012 MATT GLEASONN, AYANNA A V76.10 BREAST CANCER SCREENING 12/13/2012 MATT GLEASONN, AYANNA A V76.2 CERVICAL CANCER SCREENING (PAP [...] APRN V25.09 CONTRACEPTIVE COUNSELING - GENERAL 12/13/2012 MARINA MARJ REMY V73.81 HPV SCREENING 12/13/2012 MARINA MARJ REMY V74.5 STD SCREEN 12/13/2012 MARINA MARJ REMY V76.10 BREAST CANCER SCREENING 12/13/2012 MARINA GLEASONMARJ [...] N V25.09 CONTRACEPTIVE COUNSELING - GENERAL 12/13/2012 RAND MASTERS APRNCY N V73.81 HPV SCREENING 12/13/2012 RAND MASTERS APRNCY N V74.5 STD SCREEN 12/13/2012 RAND MASTERS [...] V25.09 CONTRACEPTIVE COUNSELING - GENERAL 12/13/2012 HASKINS , MOMO K V73.81 HPV SCREENING 12/13/2012 HASKINS [...] V76.2 CERVICAL CANCER SCREENING (PAP SMEAR) 12/27/2012 VIELKA HASKINS DOA K 461.8 OTHER ACUTE SINUSITIS 12/27/2012 DIVINE FRANCO MOMO K 461.8 OTHER ACUTE SINUSITIS 12/27/2012 DIVINE FRANCO MOMO K 461.8 OTHER ACUTE SINUSITIS 12/27/2012 MOLLY GUTIERREZ APRNIDI A 461.8 OTHER ACUTE SINUSITIS 12/27/2012 VIELKA HASKINS DOA K 461.8 OTHER ACUTE SINUSITIS 12/27/2012 VIELKA HASKINS DOA K 461.8 OTHER ACUTE SINUSITIS 12/27/2012 MARJ GRAY APRN 461.8 OTHER ACUTE SINUSITIS 12/27/2012 BOYCEBRENDA MENDOZA APRN, ANTOINETTE N 461.8 OTHER ACUTE SINUSITIS 12/27/2012 BOYCE CASHERO CALENDER OPERATOR, ANTOINETTE N 461.8 OTHER ACUTE SINUSITIS 12/27/2012 DIVINE FRANCO MOMO K 461.8 OTHER ACUTE SINUSITIS 12/27/2012 DIVINE FRANCO MOMO K 461.8 OTHER ACUTE SINUSITIS 12/27/2012 RICH JUSTICE MD 461.8 OTHER ACUTE SINUSITIS 01/11/2013 VIELKA HASKINS DOA K V25.11 IUD INSERTION 01/11/2013 VIELKA HASKINS DOA K V25.11 IUD INSERTION 01/11/2013 MATT REMY AYANNA A V25.11 IUD INSERTION 01/11/2013 VIELKA HASKINS DOA K V25.11 IUD INSERTION 01/11/2013 VIELKA HASKINS DOA K V25.11 IUD INSERTION 01/11/2013 MARJ GRAY APRN V25.11 IUD INSERTION 01/11/2013 CARLI MENDOZA APRN ANTOINETTE N V25.11 IUD INSERTION 01/11/2013 CARLI MENDOZA APRN ANTOINETTE N V25.11 IUD INSERTION 01/11/2013 VIELKA HASKINS DOA K V25.11 IUD INSERTION 01/11/2013 DIVINE FRANCO MOMO K V25.11 IUD INSERTION 01/11/2013 RICH JUSTICE MD V25.11 IUD INSERTION 02/09/2013 AYANNA GUTIERREZ APRN V25.42 CONTRACEPTION SURVEILLANCE (IUD) 02/09/2013 VIELKA HASKINS DOA K V25.42 CONTRACEPTION SURVEILLANCE (IUD) 02/09/2013 VIELKA HASKINS DOA K V25.42 CONTRACEPTION SURVEILLANCE (IUD) 02/09/2013 MARJ GRAY APRN V25.42 CONTRACEPTION SURVEILLANCE (IUD) 02/09/2013 ANTOINETTE MASTERS APRN V25.42 CONTRACEPTION SURVEILLANCE (IUD) 02/09/2013 ANTOINETTE MASTERS APRN V25.42 CONTRACEPTION SURVEILLANCE (IUD) 02/09/2013 VIELKA HASKINS DOA K V25.42 CONTRACEPTION SURVEILLANCE (IUD) 02/09/2013 VIELKA HASKINS DOA K V25.42 CONTRACEPTION SURVEILLANCE (IUD) 02/09/2013 RICH JUSTICE MD V25.42 CONTRACEPTION SURVEILLANCE (IUD) 04/29/2013 HASKINS DO, MOMO K 305.1 NICOTINE DEPENDENCE - CONTINUOUS 04/29/2013 HASKINS DO, MOMO K 356.9 POLYNEUROPATHY 04/29/2013 HASKINS DO, MOMO K 401.1 ESSENTIAL HYPERTENSION BENIGN 04/29/2013 HASKINS DO MOMO K V65.42 Anticipatory Guidance: Tobacco Use 04/29/2013 DIVINE FRANCO MOMO K 305.1 NICOTINE DEPENDENCE - CONTINUOUS 04/29/2013 HASKINS DO MOMO K 356.9 POLYNEUROPATHY 04/29/2013 HASKINS DO MOMO K 401.1 ESSENTIAL HYPERTENSION BENIGN 04/29/2013 HASKINS DO MOMO K V65.42 Anticipatory Guidance: Tobacco Use 04/29/2013 MARJ GRAY APRN 305.1 NICOTINE DEPENDENCE - CONTINUOUS 04/29/2013 MARJ GRAY APRN 356.9 POLYNEUROPATHY 04/29/2013 MARJ GARY APRN 401.1 ESSENTIAL HYPERTENSION BENIGN 04/29/2013 MARJ GRAY APRN V65.42 Anticipatory Guidance: Tobacco Use 04/29/2013 CARLI MENDOZA APRLi ANTOINETTE N 305.1 NICOTINE DEPENDENCE - CONTINUOUS 04/29/2013 CARLI MENDOZA APRLi ANTOINETTE N 356.9 POLYNEUROPATHY 04/29/2013 CARLI MENDOZA APRANTOINETTE Jefferson N 401.1 ESSENTIAL HYPERTENSION BENIGN 04/29/2013 CARLI MENDOZA APRLi ANTOINETTE N V65.42 Anticipatory Guidance: Tobacco Use 04/29/2013 CARLI MENDOZA APRANTOINETTE Jefferson N 305.1 NICOTINE DEPENDENCE - CONTINUOUS 04/29/2013 CARLI MENDOZA APRANTOINETTE Jefferson N 356.9 POLYNEUROPATHY 04/29/2013 CARLI MENDOZA APRLi ANTOINETTE N 401.1 ESSENTIAL HYPERTENSION BENIGN 04/29/2013 CARLI MENDOZA APRANTOINETTE Jefferson N V65.42 Anticipatory Guidance: Tobacco Use 04/29/2013 [...] 305.1 NICOTINE DEPENDENCE - CONTINUOUS 04/29/2013 RICH JUSTICE MD 356.9 POLYNEUROPATHY 04/29/2013 RICH JUSTICE MD 401.1 ESSENTIAL HYPERTENSION BENIGN 04/29/2013 RICH JUSTICE MD V65.42 Anticipatory Guidance: Tobacco Use 07/04/2013 CARLI MORGANANTOINETTE PENN APRN N 477.9 ALLERGIC RHINITIS CAUSE UNSPECIFIED 07/04/2013 CARLI MORGANISAMAR CALENDER OPERATORANTOINETTE Jefferson N 478.19 OTHER DISEASES OF NASAL CAVITY AND SINUSES 07/04/2013 CARLI MORGANISAMAR CALENDER OPERATORANTOINETTE Jefferson N 784.42 DYSPHONIA 07/04/2013 CARLI MORGANISAMAR CALENDER OPERATORANTOINETTE Jefferson N V06.1 TDAP DX 07/04/2013 BOYCE CATHYERO CALENDER OPERATOR, ANTOINETTE N 477.9 ALLERGIC RHINITIS CAUSE UNSPECIFIED 07/04/2013 CARLI MENDOZA APRN, ANTOINETTE N 478.19 OTHER DISEASES OF NASAL CAVITY AND SINUSES 07/04/2013 CARLI MENDOZA APRN, ANTOINETET N 784.42 DYSPHONIA 07/04/2013 CARLI MENDOZA APRN, [...] DO, MOMO K V06.1 TDAP DX 07/04/2013 RICH JUSTICE MD 477.9 ALLERGIC RHINITIS CAUSE UNSPECIFIED 07/04/2013 RICH JUSTICE MD 478.19 OTHER DISEASES OF NASAL CAVITY AND SINUSES 07/04/2013 RICH JUSTICE MD 784.42 DYSPHONIA 07/04/2013 RICH JUSTICE MD V06.1 TDAP DX 07/11/2013 RAND MASTERS APRNCY N 719.44 PAIN IN JOINT INVOLVING HAND [...] 719.43 PAIN IN JOINT INVOLVING FOREARM 01/03/2014 VIELKA HASKINS DOA K 782.0 DISTURBANCE OF SKIN SENSATION 01/03/2014 [...] By Performed On BLOOD PRESSURE CHECK 10/14/2012 84748 ROUTINE VENIPUNCTURE 10/14/2012 54474 MICRO ALBUMIN-IN HOUSE 10/14/2012 44708 CMP 10/14/2012 44660 LIPID PANEL 10/14/2012 69144 A1C (RML) 10/14/2012 42395 NO CHARGE 11/25/2012 98452 GC/CHLAM URINE (STATE) 12/06/2012 38184 ROUTINE VENIPUNCTURE 12/13/2012 61068 URINE TEST (IN- HOUSE) 12/13/2012 73233 TRICHOMONAS (IN-HOUSE) 12/13/2012 69888 MAMMOGRAM, SCREENING 12/13/2012 13739 SYPHILIS TEST 12/13/2012 19393 HIV ANTIBODIES (RML) 12/13/2012 02010 CULTURE UROGENITAL 12/13/2012 19205 PAP SMEAR 12/13/2012 Q0091 PAP SMEAR OBTAIN SMEAR 12/13/2012 95135 IUD INSERTION 01/11/2013 [id number] LEVONORGESTREL IU CONTRACEPT 01/11/2013 07526 URINE TEST (IN- HOUSE) 01/11/2013 BLOOD PRESSURE CHECK 05/06/2013 BLOOD PRESSURE CHECK 06/27/2013 39629 THERAPUTIC INJ SQ/IM 01/03/2014 J1885 TORADOL INJ 01/03/2014 69770 XRAY WRIST RIGHT COMP MIN 3 VIEWS 01/03/2014 05016 BONILLA 01/03/2014 15971 ROUTINE VENIPUNCTURE 01/10/2014 81345 CMP 01/10/2014 04920 LIPID PANEL 01/10/2014 79495 VIT B 12 01/10/2014 39264 CBC 01/10/2014 THYANA THYROID ANALYZER 01/10/2014 Results There is no data. Encounters ACCT No. Visit Date/Time Discharge Status Pt. Type Provider Facility Loc./Unit Complaint [id number] 03/30/2014 08:46:00 03/30/2014 23:59:59 CLS Outpatient RICH JUSTICE MD [id number] 01/10/2014 08:16:00 01/10/2014 23:59:59 CLS Outpatient MOMO HASKINS DO [id number] 01/03/2014 11:51:00 01/03/2014 23:59:59 CLS Outpatient MOMO HASKINS DO [id number] 07/11/2013 09:30:00 07/11/2013 23:59:59 CLS Outpatient ANTOINETTE MASTERS APRN [id number] 07/04/2013 15:10:00 07/04/2013 23:59:59 CLS Outpatient ANTOINETTE MASTERS APRN [id number] 06/27/2013 12:26:00 06/27/2013 23:59:59 CLS Outpatient MARJ GRAY APRN [id number] 05/06/2013 14:12:00 05/06/2013 23:59:59 CLS Outpatient MOMO HASKINS DO [id number] 04/29/2013 10:10:00 04/29/2013 23:59:59 CLS Outpatient MOMO HASKINS DO [id number] 02/09/2013 10:47:00 02/09/2013 23:59:59 CLS Outpatient AYANNA GUTIERREZ APRN [id number] 01/24/2013 09:13:00 01/24/2013 23:59:59 CLS Outpatient MOMO HASKINS DO [id number] 01/11/2013 07:50:00 01/11/2013 23:59:59 CLS Outpatient MOMO HASKINS DO [id number] 12/27/2012 11:31:00 12/27/2012 23:59:59 CLS Outpatient MOMO HASKINS DO [id number] 12/13/2012 09:13:00 12/13/2012 23:59:59 CLS Outpatient AYANNA GUTIERREZ APRN [id number] 12/01/2012 15:24:00 12/01/2012 23:59:59 CLS Outpatient CARLI MENDOZA APRNANTOINETTE Li [id number] 11/24/2012 10:49:00 11/24/2012 23:59:59 CLS Outpatient POPEYE COOL APRN [id number] 01/19/2012 07:52:00 01/19/2012 23:59:59 CLS Outpatient CHERELLE NICOLE DDS [id number] 10/14/2012 07:44:00 Document Registration [id number] 08/09/2012 11:39:00 Document Registration [id number] 07/08/2012 11:25:00 Document Registration
--- NOTE | 2017-02-24 23:28 | ED Cough/URI ---
General Stated Complaint: COUGH,RUNNY NOSE Source: patient Exam Limitations: no limitations History of Present Illness Time seen by provider: 23:16 Initial Comments Here with report of cough and runny nose over the last 3 days. Complains of left ear fullness. States her inhaler is not helping with her cough nor is Afrin nasal spray. States she's had a decrease her smoking due to the cough. Taking her other medications as directed. She does have Tessalon Perles and that is not helping with the cough. Timing/Duration: getting worse Severity/Quality: moderate, dry cough Prior Episodes/Possible Cause: occasional episodes Modifying Factors: Worse With Activity, Improves With Rest Associated Symptoms: cough, fever/chills, nasal congestion, nasal drainage, shortness of breath, sore throat, wheezing Allergies and Home Medications Allergies Coded Allergies: morphine (Verified Allergy, Unknown, 02/09/17) Home Medications Amitriptyline HCl 50 Mg Tablet, 50 MG PO HS, (Reported) Cetirizine HCl 10 Mg Tablet, 10 MG PO, (Reported) Diphenoxylate HCl/Atropine 1 Each Tablet, 1 EACH PO, (Reported) Hydrochlorothiazide 12.5 Mg Capsule, 12.5 MG PO DAILY, (Reported) Lisinopril 5 Mg Tablet, 5 MG PO DAILY, (Reported) Montelukast Sodium 10 Mg Tablet, 10 MG PO DAILY, (Reported) Ondansetron 8 Mg Tab.rapdis, 8 MG PO for ABDOMINAL PAIN, (Reported) Ondansetron 4 Mg Tab.rapdis, 4 MG PO Q6H PRN for NAUSEA/VOMITING, #8 Ref 0 Prescribed by: ROLAND MORAN on 02/09/17 1312 [But/Apap/Caf] , (Reported) Constitutional: see HPI, chills, fever, No weakness EENTM: nose congestion, throat pain Respiratory: cough, short of breath Cardiovascular: no symptoms reported Gastrointestinal: no symptoms reported, No diarrhea, No vomiting Genitourinary: no symptoms reported Musculoskeletal: muscle pain Skin: no symptoms reported Past Jvdkaea-Fhpwdp-Lvfkup Hx Patient Social History Alcohol Use: Occasionally Uses Alcohol Beverage of Choice: Whiskey Recreational Drug Use: No Smoking Status: Current Everyday Smoker Type Used: Cigarettes Recent Foreign Travel: No Contact w/Someone Who Travel: No Recent Hopitalizations: No Seasonal Allergies Seasonal Allergies: Yes Surgeries History of Surgeries: Yes Surgeries: Adenoidectomy, Gallbladder, Tonsillectomy Respiratory History of Respiratory Disorde: Yes (OCCATIONAL BRONCHITIS) Cardiovascular History of Cardiac Disorders: Yes Cardiac Disorders: Hypertension Neurological History of Neurological Disord: Yes Neurological Disorders: Headaches /Migraines [employer] 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 Genitourinary History of Genitourinary Disor: No Gastrointestinal History of Gastrointestinal Di: No Musculoskeletal History of Musculoskeletal Dis: No Endocrine History of Endocrine Disorders: No HEENT History of 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 Cancer History of Cancer: No Psychosocial History of Psychiatric Problem: No Integumentary History of Skin or Integumenta: No Reviewed Nursing Assessment Reviewed/Agree w Nursing PMH: Yes Family Medical History Significant Family History: No Pertinent Family Hx Physical Exam Vital Signs Vital Sign - Last 12Hours 02/24/17 23:14 Temp 98.1 Pulse 94 Resp 20 B/P (MAP) 110/71 (84) Pulse Ox 93 O2 Delivery Room Air Capillary Refill : General Appearance: WD/WN, no apparent distress HEENT: PERRL/EOMI, TM abnormal (L) (fullness without redness or purulence.), pharyngeal erythema, No tonsillar exudate Neck: full range of motion, supple Respiratory: lungs clear, normal breath sounds Cardiovascular: regular rate, rhythm, no murmur Gastrointestinal: non tender, soft Extremities: non-tender, normal inspection Neurologic/Psychiatric: alert, oriented x 3 Skin: normal color, warm/dry Progress/Results/Core Measures Suspected Sepsis SIRS Temperature: Pulse: Respiratory Rate: Blood Pressure / Mean: Results/Orders Micro Results Microbiology 02/24/17 Influenza Types A,B Antigen (BANDAR) - Final, Complete My Orders Orders - ROLAND MORAN MD Influenza A And B Antigens (02/24/17 23:21) Chest Pa/Lat (2 View) (02/24/17 23:21) Rx-Oseltamivir Caps (Rx-Tamiflu Caps) (02/24/17 23:59) Vital Signs/I&O Vital Sign - Last 12Hours 02/24/17 23:14 Temp 98.1 Pulse 94 Resp 20 B/P (MAP) 110/71 (84) Pulse Ox 93 O2 Delivery Room Air Capillary Refill : Progress Note : Progress Note Seen and evaluated. Influenza screen and two-view chest x-ray ordered. Monitor patient. 0005: Influenza screen positive for influenza B. Tamiflu initiated. Chest x-ray does not show any significant findings. Patient has been without significant cough throughout the ER stay. No respiratory distress noted. We'll have her follow-up with her primary doctor later this week for recheck and further evaluation. Discharged home with return precautions. Patient verbalize understanding of instructions and agreement with plan. Diagnostic Imaging Diagonstic Imaging: Xray Plain Films/CT/US/NM/MRI: chest Comments No acute findings. Chronic Lung markings. Reviewed: Reviewed by Me Departure Impression Impression: Primary Impression: Influenza Disposition: HOME, SELF-CARE Condition: Stable Departure-Patient Inst. Decision time for Depature: 00:09 Referrals: [facility] (PCP/Family) Primary Care Physician Patient Instructions: Flu Add. Discharge Instructions: Continue home medications as previously prescribed. Take other medicines as instructed. You may use Afrin nasal spray or the generic, 12 hour relief, 2 sprays to each nostril twice daily for 3 days only and then stop. Do not use more than 3 days. Drink plenty of fluids. Follow-up with your doctor later this week for recheck and further evaluation. Return for worse pain, fever, vomiting, weakness, breathing problems or other concerns as needed. Copy Copies To 1: GALO VALDEZ MD, TIMOTHY D MD Feb 24, 2017 23:28
[2017-02-24] MEDS ORDERED: RX-OSELTAMIVIR 75 MG (TAMIFLU) BOX OF 10 PO STA (23:59)
[2017-02-25 00:12] VITALS: BP 116/71
--- NOTE | 2017-02-25 07:05 | Diagnostic Imaging Report ---
CHEST PA/LAT (2 VIEW) Indication: Cough and congestion Comparison: None available. Findings: No focal pneumonic consolidation, pleural effusion or pneumothorax. Normal heart size and pulmonary vasculature. Impression: No acute cardiopulmonary process. Dictated by: Dictated on workstation # [id number]
== END 2017-02-25 00:12 | disposition home or self-care (01) ==
LOC: EDUNIT# 23:07 → ER 23:09
DX: J11.1 Influenza due to unidentified influenza virus with other respiratory manifestations (principal); I10 Essential (primary) hypertension; G43.909 Migraine, unspecified, not intractable, without status migrainosus; F17.210 Nicotine dependence, cigarettes, uncomplicated; Z90.89 Acquired absence of other organs
CPT/HCPCS: 71020; 87804; 99283

== ENCOUNTER → 2020-10-31 | Outpatient (CLI) | payer SELFPAY ==
[~2020-10-31] MED LIST changes: -MONT10TA24 PO; +MONT10TA32 PO
== END ==
LOC: CARD 15:00
PROVIDERS: ATTEND Nurse Practitioner Family
DX: I51.7 Cardiomegaly (principal); I35.1 Nonrheumatic aortic (valve) insufficiency; I10 Essential (primary) hypertension
CPT/HCPCS: 93306

== ENCOUNTER 2021-07-15 18:35 | Emergency (ER) | payer OTHER ==
[~2021-07-15] VITALS: Ht 165 cm; Wt 99.8 kg
[~2021-07-15 18:35] MED LIST changes: +MONT-40 PO; -MONT10TA32 PO
[2021-07-15 19:12] LABS: BILIRUBIN,URINE 1+ (NEGATIVE); CLARITY,URINE CLOUDY; COLOR,URINE YELLOW; GLUCOSE, URINE (UA) NEGATIVE (NEGATIVE); KETONES,URINE TRACE (NEGATIVE); LEUKOCYTE ESTERASE ,URINE NEGATIVE (NEGATIVE); NITRITE,URINE NEGATIVE (NEGATIVE); PROTEIN,URINE 1+ (NEGATIVE)
[2021-07-15 19:12] LABS: BASOPHILS % (AUTO) 0 % (0-10); EOSINOPHILS # (AUTO) 0.2 10^3/uL (0.0-0.3); EOSINOPHILS % (AUTO) 3 % (0-10); HEMATOCRIT 40 % (35-52); HEMOGLOBIN 13.3 g/dL (11.5-16.0); LYMPHOCYTES # (AUTO) 1.9 10^3/uL (1.0-4.0); LYMPHOCYTES % (AUTO) 30 % (12-44); MEAN CORPUSCULAR HEMOGLOBIN 30 pg (25-34); MEAN CORPUSCULAR HGB CONC 34 g/dL (32-36); MEAN CORPUSCULAR VOLUME 89 fL (80-99); MEAN PLATELET VOLUME 9.9 fL (9.0-12.2); MONOCYTES # (AUTO) 0.5 10^3/uL (0.0-1.0); MONOCYTES % (AUTO) 7 % (0-12); NEUTROPHILS # (AUTO) 3.8 10^3/uL (1.8-7.8); NEUTROPHILS % (AUTO) 59 % (42-75); PLATELET COUNT 236 10^3/uL (130-400); WHITE BLOOD COUNT 6.4 10^3/uL (4.3-11.0)
[2021-07-15 19:15] LABS: ALBUMIN 4.2 GM/DL (3.2-4.5); POTASSIUM 3.1 MMOL/L (3.6-5.0)
[2021-07-15] MEDS ORDERED: ASPIRIN 81 MG CHEW (CHILDREN'S ASA) PO ONE (19:15)
[2021-07-15] MEDS ORDERED: NS IV 1000 ML 1,000 ML IV STA (19:15)
[2021-07-15 19:17] LABS: CALCIUM 9.5 MG/DL (8.5-10.1)
[2021-07-15 19:18] LABS: PROTHROMBIN TIME PATIENT 13.6 SEC (12.2-14.7); TOTAL PROTEIN 6.8 GM/DL (6.4-8.2)
[2021-07-15 19:20] LABS: BILIRUBIN,TOTAL 0.5 MG/DL (0.1-1.0)
[2021-07-15 19:20] LABS: BACTERIA,URINE FEW /HPF; SQUAMOUS EPITHELIAL CELL,UR 0-2 /HPF; WBC,URINE 0-2 /HPF
[2021-07-15 19:21] LABS: CREATININE SERUM 0.9 MG/DL (0.60-1.30)
[2021-07-15 19:23] LABS: AMPHETAMINE SCREEN, URINE NEGATIVE (NEGATIVE); BARBITURATE SCREEN URINE NEGATIVE (NEGATIVE); BENZODIAZEPINES SCREEN URINE NEGATIVE (NEGATIVE); CANNABINOID SCREEN, URINE NEGATIVE (NEGATIVE); COCAINE SCREEN URINE NEGATIVE (NEGATIVE); METHADONE STAT NEGATIVE (NEGATIVE); OPIATE SCREEN URINE NEGATIVE (NEGATIVE); OXYCODONE STAT NEGATIVE (NEGATIVE); PROPOXYPHENE STAT NEGATIVE (NEGATIVE); TRICYCLIC ANTIDEPRESSANTS SCRE NEGATIVE (NEGATIVE)
--- NOTE | 2021-07-15 19:40 | Diagnostic Imaging Report ---
EXAMINATION: Chest 1 view HISTORY: Left-sided chest pain. COMPARISON: 02/25/2017. FINDINGS: The lung volumes are normal. No focal consolidation is seen. No large pleural effusion or pneumothorax is seen. The cardiomediastinal silhouette is normal in size and contour. No acute osseous abnormality is seen. IMPRESSION: 1. No acute pleuroparenchymal process. Dictated by: Dictated on workstation # [id number]
--- NOTE | 2021-07-15 20:09 | ED Chest Pain ---
General Chief Complaint: Chest Pain Stated Complaint: L SIDE ABD PAIN Nursing Triage Note: c/o left sided abdominal pain radiating to right side, left chest pain radiating to left shoulder x1 day History of Present Illness Date Seen by Provider: July 15, 2021 Time Seen by Provider: 19:12 Initial Comments 55-year-old female with PMH of HTN/CHF/ active smoker smoking 1 pack/day, is here with complaints of retrosternal chest pain with radiation of pain down her left arm intermittently. Patient also has odd sensations of pain going throughout her epigastric area with associated intermittent burping. Denies d iarrhea, dysuria, flank pain, headache, fever, respiratory symptoms. Patient has never had a heart attack or stroke in the past. Allergies and Home Medications Allergies Coded Allergies: morphine (Verified Allergy, Unknown, 02/09/17) Patient Home Medication List Home Medication List Reviewed: Yes Lisinopril (Zestril) 5 Mg Tablet, 5 MG PO DAILY, (Reported) Entered as Reported by: KARTHIKEYAN GRACE on 02/09/17932 Discontinued Medications Amitriptyline HCl (Amitriptyline HCl) 50 Mg Tablet, 50 MG PO HS, (Reported) Discontinued Reason: No Longer Taking Entered as Reported by: KARTHIKEYAN GRACE on 02/09/17932 Last Action: Discontinued Cetirizine HCl (Cetirizine HCl) 10 Mg Tablet, 10 MG PO, (Reported) Discontinued Reason: No Longer Taking Entered as Reported by: KARTHIKEYAN GRACE on 02/09/17932 Last Action: Discontinued Diphenoxylate HCl/Atropine (Diphenoxylate-Atrop 2.5-0.025) 1 Each Tablet, 1 EACH PO, (Reported) Discontinued Reason: No Longer Taking Entered as Reported by: KARTHIKEYAN GRACE on 02/09/17932 Last Action: Discontinued Hydrochlorothiazide (Hydrochlorothiazide) 12.5 Mg Capsule, 12.5 MG PO DAILY, (Reported) Discontinued Reason: No Longer Taking Entered as Reported by: KARTHIKEYAN GRACE on 02/09/17932 Last Action: Discontinued Montelukast Sodium (Montelukast Sodium) 10 Mg Tablet, 10 MG PO DAILY, (Reported) Discontinued Reason: No Longer Taking Entered as Reported by: KARTHIKEYAN GRACE on 02/09/17932 Last Action: Discontinued Ondansetron (Ondansetron Odt) 8 Mg Tab.rapdis, 8 MG PO for ABDOMINAL PAIN, (Reported) Discontinued Reason: No Longer Taking Entered as Reported by: KARTHIKEYAN GRACE on 02/09/17932 Last Action: Discontinued Ondansetron (Ondansetron Odt) 4 Mg Tab.rapdis, 4 MG PO Q6H PRN for NAUSEA/VOMITING Discontinued Reason: No Longer Taking Prescribed by: ROLAND MORAN on 02/09/17 1312 Last Action: Discontinued [But/Apap/Caf] , (Reported) Discontinued Reason: No Longer Taking Entered as Reported by: KARTHIKEYAN GRACE on 02/09/17932 Last Action: Discontinued Review of Systems Review of Systems Constitutional: no symptoms reported EENTM: No Symptoms Reported Respiratory: No Symptoms Reported Cardiovascular: Chest Pain Gastrointestinal: Abdominal Pain Genitourinary: No Symptoms Reported Musculoskeletal: no symptoms reported Skin: no symptoms reported Psychiatric/Neurological: No Symptoms Reported Endocrine: No Symptoms Reported Hematologic/Lymphatic: No Symptoms Reported Past Uftrzoa-Nrabdc-Bexpov Hx Patient Social History Tobacco Use?: Yes Substance use?: No Alcohol Use?: No Pt feels they are or have been: No Seasonal Allergies Seasonal Allergies: Yes Past Medical History Surgery/Hospitalization HX: cholecystectomy, t/a, htn, chf Surgeries: Yes Adenoidectomy, Gallbladder, Tonsillectomy Respiratory: Yes (OCCATIONAL BRONCHITIS) Cardiac: Yes Hypertension Neurological: Yes Headaches /Migraines [employer] History: Menopausal Genitourinary: No Gastrointestinal: No Musculoskeletal: No Endocrine: No HEENT: 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) Loss of Vision: Left Cancer: No Psychosocial: No Integumentary: No Family Medical History No Pertinent Family Hx Physical Exam Vital Signs Vital Signs - First Documented 07/15/21 18:49 Temp 36.6 Pulse 78 Resp 18 B/P (MAP) 117/77 (90) Pulse Ox 92 O2 Delivery Room Air Capillary Refill : Less Than 3 Seconds Height, Weight, BMI Height: 5'6.00" Weight: 217lbs. oz. 98.712096ur; 36.00 BMI Method:Stated General Appearance: No Apparent Distress HEENT: PERRL/EOMI Neck: Full Range of Motion, Non Tender, Supple Respiratory: Chest Non Tender, Lungs Clear, Normal Breath Sounds, No Respiratory Distress Cardiovascular: Regular Rate, Rhythm, No Edema, No JVD, Normal Peripheral Pulses, Systolic Murmur Gastrointestinal: Normal Bowel Sounds, No Organomegaly, Soft, Tenderness (epigastric tenderness present) Neurologic/Psychiatric: Alert, Oriented x3, No Motor/Sensory Deficits, Normal Mood/Affect Skin: Normal Color Progress/Results/Core Measures Results/Orders Lab Results Laboratory Tests Test 07/15/21 18:53 07/15/21 18:54 07/15/21 21:10 Range/Units White Blood Count 6.4 4.3-11.0 10^3/uL Red Blood Count 4.42 3.80-5.11 10^6/uL Hemoglobin 13.3 11.5-16.0 g/dL Hematocrit 40 35-52 % Mean Corpuscular Volume 89 80-99 fL Mean Corpuscular Hemoglobin 30 25-34 pg Mean Corpuscular Hemoglobin Concent 34 32-36 g/dL Red Cell Distribution Width 13.2 10.0-14.5 % Platelet Count 236 130-400 10^3/uL Mean Platelet Volume 9.9 9.0-12.2 fL Immature Granulocyte % (Auto) 0 % Neutrophils (%) (Auto) 59 42-75 % Lymphocytes (%) (Auto) 30 12-44 % Monocytes (%) (Auto) 7 0-12 % Eosinophils (%) (Auto) 3 0-10 % Basophils (%) (Auto) 0 0-10 % Neutrophils # (Auto) 3.8 1.8-7.8 10^3/uL Lymphocytes # (Auto) 1.9 1.0-4.0 10^3/uL Monocytes # (Auto) 0.5 0.0-1.0 10^3/uL Eosinophils # (Auto) 0.2 0.0-0.3 10^3/uL Basophils # (Auto) 0.0 0.0-0.1 10^3/uL Immature Granulocyte # (Auto) 0.0 0.0-0.1 10^3/uL Prothrombin Time 13.6 12.2-14.7 SEC INR Comment 1.0 0.8-1.4 Activated Partial Thromboplast Time 28 24-35 SEC D-Dimer 0.16 0.00-0.49 UG/ML Sodium Level 138 135-145 MMOL/L Potassium Level 3.1 L 3.6-5.0 MMOL/L Chloride Level 101 98-107 MMOL/L Carbon Dioxide Level 26 21-32 MMOL/L Anion Gap 11 5-14 MMOL/L Blood Urea Nitrogen 13 7-18 MG/DL Creatinine 0.90 0.60-1.30 MG/DL Estimat Glomerular Filtration Rate 75 BUN/Creatinine Ratio 14 Glucose Level 129 H 70-105 MG/DL Calcium Level 9.5 8.5-10.1 MG/DL Corrected Calcium 9.3 8.5-10.1 MG/DL Magnesium Level 2.0 1.6-2.4 MG/DL Total Bilirubin 0.5 0.1-1.0 MG/DL Aspartate Amino Transf (AST/SGOT) 16 5-34 U/L Alanine Aminotransferase (ALT/SGPT) 15 0-55 U/L Alkaline Phosphatase 61 40-136 U/L Troponin I < 0.028 < 0.028 <0.028 NG/ML B-Type Natriuretic Peptide 29.8 <100.0 PG/ML Total Protein 6.8 6.4-8.2 GM/DL Albumin 4.2 3.2-4.5 GM/DL Lipase 61 8-78 U/L Urine Color YELLOW Urine Clarity CLOUDY Urine pH 6.0 5-9 Urine Specific [place] 1.025 H 1.016-1.022 Urine Protein 1+ H NEGATIVE Urine Glucose (UA) NEGATIVE NEGATIVE Urine Ketones TRACE H NEGATIVE Urine Nitrite NEGATIVE NEGATIVE Urine Bilirubin 1+ H NEGATIVE Urine Urobilinogen 1.0 < = 1.0 MG/DL Urine Leukocyte Esterase NEGATIVE NEGATIVE Urine RBC (Auto) TRACE-I H NEGATIVE Urine RBC NONE /HPF Urine WBC 0-2 /HPF Urine Squamous Epithelial Cells 0-2 /HPF Urine Renal Epithelial Cells NONE /HPF Urine Crystals NONE /LPF Urine Bacteria FEW H /HPF Urine Casts PRESENT /LPF Urine Hyaline Casts 5-10 H /LPF Urine Mucus NEGATIVE /LPF Urine Culture Indicated NO Urine Opiates Screen NEGATIVE NEGATIVE Urine Oxycodone Screen NEGATIVE NEGATIVE Urine Methadone Screen NEGATIVE NEGATIVE Urine Propoxyphene Screen NEGATIVE NEGATIVE Urine Barbiturates Screen NEGATIVE NEGATIVE Ur Tricyclic Antidepressants Screen NEGATIVE NEGATIVE Urine Phencyclidine Screen NEGATIVE NEGATIVE Urine Amphetamines Screen NEGATIVE NEGATIVE Urine Methamphetamines Screen NEGATIVE NEGATIVE Urine Benzodiazepines Screen NEGATIVE NEGATIVE Urine Cocaine Screen NEGATIVE NEGATIVE Urine Cannabinoids Screen NEGATIVE NEGATIVE My Orders Orders - TUCKER GILLIAM MD Ekg Tracing (07/15/21 18:54) Cbc With Automated Diff (07/15/21 19:06) Magnesium (07/15/21 19:06) Chest 1 View, Ap/Pa Only (07/15/21 19:06) Comprehensive Metabolic Panel (07/15/21 19:06) Protime With Inr (07/15/21 19:06) Partial Thromboplastin Time (07/15/21 19:06) O2 (07/15/21 19:06) Monitor-Rhythm Ecg Trace Only (07/15/21 19:06) Lipid Panel (07/16/21 06:00) Ed Iv/Invasive Line Start (07/15/21 19:06) Lipase (07/15/21 19:06) Bnp Queenie (07/15/21 19:06) Fibrin Degradation Products (07/15/21 19:) Troponin I Queenie (07/15/21 19:06) Aspirin Chewable Tablet (Baby Aspirin Ch (07/15/21 19:15) Drug Screen Stat (Urine) (07/15/21 19:07) Ua Culture If Indicated (07/15/21 19:07) Ed Iv/Invasive Line Start (07/15/21 19:15) Ns Iv 1000 Ml (Sodium Chloride 0.9%) (07/15/21 19:15) Atorvastatin Tablet (Lipitor Tablet) (07/15/21 19:16) Troponin I Queenie (07/15/21 21:09) Famotidine Injection (Pepcid Injection) (07/15/21 21:09) Ekg Tracing (07/15/21 21:10) Ct Abdomen/Pelvis Wo (07/15/21 21:13) Medications Given in ED Current Medications Medications Dose Ordered Sig/Louis Route Start Time Stop Time Status Last Admin Dose Admin Aspirin 324 mg ONCE ONCE PO 07/15/21 19:15 07/15/21 19:16 DC 07/15/21 19:12 324 MG Atorvastatin Calcium 80 mg 1916 ONCE PO 07/15/21 19:16 07/15/21 19:22 DC 07/15/21 19:43 80 MG Vital Signs/I&O 07/15/21 18:49 Temp 36.6 Pulse 78 Resp 18 B/P (MAP) 117/77 (90) Pulse Ox 92 O2 Delivery Room Air Blood Pressure Mean: 90 Progress Progress Note : Progress Note 1. CHEST PAIN:ACS RULE OUT - Troponin x1 normal - CXR: normal - EKG - Labs unremarkable, normal WBC - BNP and D-dimer normal - NS IVF / ASA 324 mg/ Pepcid 20mg iv STAT 2. DIVERTICULOSIS: EPIGASTRIC PAIN - CT ABD: Diverticulosis without diverticulitis - F/u with PCP - UA / UDS negative - Zofran prescription given - Tylenol or Ibuprofen prn pain -The patient was seen in the ED, and treated appropriately to presentation at a specific point in time. Patient is informed that there is a possibility that disease and illness can evolve and change in acuity rapidly or slowly after patient is discharged from the ER. Precautionary advice given to the patient for immediate return to ER if symptoms worsen or do not resolve, and to seek emergency care sooner rather than later. Pt also advised on the importance of PCP follow up and compliance with management and follow up plan with PCP and/or specialist, as this is part of the management plan. Pt verbally expressed understanding. Initial ECG Impression Date: July 15, 2021 Initial ECG Impression Time: 19:03 Initial ECG Rate: 71 Initial ECG Rhythm: Normal Sinus Initial ECG Intervals LBBB Diagnostic Imaging Diagonstic Imaging: Xray Plain Films/CT/US/NM/MRI: chest Comments [facility]. [place], [place] NAME: SKYLER WILKINS [facility] REC#: [id number] PT STATUS: REG ER : 1965 PHYSICIAN: TUCKER GILLIAM MD ADMIT DATE: 07/15/21/ER Signed Date of Exam:07/15/21 CT ABDOMEN/PELVIS WO PROCEDURE: CT abdomen and pelvis without contrast. TECHNIQUE: Multiple contiguous axial images were obtained through the abdomen and pelvis without the use of intravenous contrast. Auto Exposure Controls were utilized during the CT exam to meet ALARA standards for radiation dose reduction. INDICATION: Epigastric pain. COMPARISON: None. FINDINGS: The heart is unremarkable. The lung bases are clear. Hypoattenuating focus is seen in the left hepatic lobe, likely representing a benign cyst or hemangioma. The gallbladder is surgically absent. The spleen, pancreas, adrenal glands, and kidneys have a normal appearance. There is no pathologically enlarged mesenteric or retroperitoneal adenopathy. The bowel loops are nondilated. The appendix is not visualized. No secondary signs of acute appendicitis are seen. Diverticula are seen in the descending and sigmoid colon without evidence of acute diverticulitis. There is no free fluid or free air. No acute osseous abnormalities. There is calcified aortic and iliac atherosclerotic plaque without aneurysm. Ureters and bladder are normal. There is no free air, loculated collection, or adenopathy in the pelvis. IMPRESSION: 1. No acute abnormalities in the abdomen and pelvis. No bowel obstruction, free fluid, or free air. 2. Diverticulosis of the descending and sigmoid colon without evidence of acute diverticulitis. Dictated by: Dictated on workstation # [id number] Dict: 07/15/[id number] Trans: 07/15/212213 [facility] [id number] Interpreted by: RUFINO FORD DO Electronically signed by: RUFINO FORD DO 07/15/212213 [facility], [place] NAME: SKYLER WILKINS [facility] REC#: [id number] PT STATUS: REG ER : 1965 PHYSICIAN: TUCKER GILLIAM MD ADMIT DATE: 07/15/21/ER Signed Date of Exam:07/15/21 CHEST 1 VIEW, AP/PA ONLY EXAMINATION: Chest 1 view HISTORY: Left-sided chest pain. COMPARISON: 02/25/2017. FINDINGS: The lung volumes are normal. No focal consolidation is seen. No large pleural effusion or pneumothorax is seen. The cardiomediastinal silhouette is normal in size and contour. No acute osseous abnormality is seen. IMPRESSION: 1. No acute pleuroparenchymal process. Dictated by: Dictated on workstation # [id number] Dict: 07/15/211937 Trans: 07/15/211941 [facility] [id number] Interpreted by: RUFINO FORD DO Electronically signed by: RUFINO FORD DO 07/15/211941 Departure Impression Primary Impression: Diverticulosis of colon without diverticulitis Additional Impression: Ruled out for myocardial infarction Disposition: 01 HOME, SELF-CARE Condition: Improved Departure-Patient Inst. [facility] Primary Care Physician Patient Instructions: Diverticulosis (DC), Chest Pain That Is Not Caused by the Heart (DC) Add. Discharge Instructions: Follow-up with PCP within the next 3 days Tylenol and ibuprofen for pain Zofran prescription given every 6 hours as needed nausea and vomiting The patient was seen in the ED, and treated appropriately to presentation at a specific point in time. Patient is informed that there is a possibility that disease and illness can evolve and change in acuity rapidly or slowly after patient is discharged from the ER. Precautionary advice given to the patient for immediate return to ER if symptoms worsen or do not resolve, and to seek emergency care sooner rather than later. Pt also advised on the importance of PCP follow up and compliance with management and follow up plan with PCP and/or specialist, as this is part of the management plan. Pt verbally expressed understanding. All discharge instructions reviewed with patient and/or family. Voiced understanding. Scripts Ondansetron (Ondansetron Odt) 4 Mg Tab.rapdis 4 MG PO Q6H for Nausea/Vomiting for 3 Days, #20 TAB Prov: TUCKER GILLIAM MD 07/15/21 Work/School Note: Work Release Form Date Seen in the Emergency Department: July 15, 2021 Restrictions: Need Release from Doctor TUCKER GILLIAM MD July 15, 2021 20:09
[2021-07-15] MEDS ORDERED: FAMOTIDINE 20MG/2ML IV (PEPCID) IV STA (21:09)
--- NOTE | 2021-07-15 22:13 | Diagnostic Imaging Report ---
PROCEDURE: CT abdomen and pelvis without contrast. TECHNIQUE: Multiple contiguous axial images were obtained through the abdomen and pelvis without the use of intravenous contrast. Auto Exposure Controls were utilized during the CT exam to meet ALARA standards for radiation dose reduction. INDICATION: Epigastric pain. COMPARISON: None. FINDINGS: The heart is unremarkable. The lung bases are clear. Hypoattenuating focus is seen in the left hepatic lobe, likely representing a benign cyst or hemangioma. The gallbladder is surgically absent. The spleen, pancreas, adrenal glands, and kidneys have a normal appearance. There is no pathologically enlarged mesenteric or retroperitoneal adenopathy. The bowel loops are nondilated. The appendix is not visualized. No secondary signs of acute appendicitis are seen. Diverticula are seen in the descending and sigmoid colon without evidence of acute diverticulitis. There is no free fluid or free air. No acute osseous abnormalities. There is calcified aortic and iliac atherosclerotic plaque without aneurysm. Ureters and bladder are normal. There is no free air, loculated collection, or adenopathy in the pelvis. IMPRESSION: 1. No acute abnormalities in the abdomen and pelvis. No bowel obstruction, free fluid, or free air. 2. Diverticulosis of the descending and sigmoid colon without evidence of acute diverticulitis. Dictated by: Dictated on workstation # [id number]
[2021-07-15] MEDS ORDERED: ONDA4TAB11 PO (22:52)
[2021-07-15 22:55] VITALS: BP 138/94
== END 2021-07-15 22:57 | disposition home or self-care (01) ==
LOC: EDUNIT# 18:35 → ER 18:37
DX: K57.30 Diverticulosis of large intestine without perforation or abscess without bleeding (principal); I11.0 Hypertensive heart disease with heart failure; I50.9 Heart failure, unspecified; H54.7 Unspecified visual loss; F17.210 Nicotine dependence, cigarettes, uncomplicated; Z90.49 Acquired absence of other specified parts of digestive tract
CPT/HCPCS: 36415; 71045; 74176; 80053; 80306; 81000; 83690; 83735; 83880; 84484; 85025; 85379; 85610; 85730; 93005; 93041

== ENCOUNTER 2022-04-14 19:48 | Emergency (ER) | payer OTHER ==
[~2022-04-14] VITALS: Ht 167.7 cm; Wt 97.5 kg
[2022-04-14] MEDS ORDERED: RT-ALBUTEROL/IPRATROPIUM 3 ML (DUONEB) VIAL INH ONE (20:15)
--- NOTE | 2022-04-14 20:27 | ED Respiratory ---
General Chief Complaint: Respiratory Problems Stated Complaint: SOB, RECENT PNEUMONIA Nursing Triage Note: PT AMB TO ED BY POV WITH C/O SOB. PT REPORTS SHE WAS DX WITH PNEUMONIA 2 WKS AGO BY PCP AND HAS BEEN TREATED WITH TWO ANTIBIOTICS. PT REPORTS SOB WITH AMB. Source: patient Exam Limitations: no limitations History of Present Illness Date Seen by Provider: Apr 14, 2022 Time Seen by Provider: 20:26 Initial Comments To ER by private vehicle from home with reports of shortness of breath, orthopnea, cough productive of white frothy sputum getting progressively worse since March 02. Was seen by [facility] about 2 weeks ago and diagnosed based on clinical exam with pneumonia. No imaging done. Was given 2 different antibiotics but denies any improvement. She does have COPD. Continues to smoke a pack a day.History of CHF. Timing/Duration: constant Severity: moderate Prior Episodes/Possible Cause: occasional episodes Modifying Factors: Worse With Coughing, Worse With Lying Down Associated Symptoms: cough, shortness of breath Allergies and Home Medications Allergies Coded Allergies: morphine (Verified Allergy, Unknown, 02/09/17) Patient Home Medication List Home Medication List Reviewed: Yes Furosemide (Lasix) 40 Mg Tablet, 40 MG PO DAILY Prescribed by: SANDY PATEL on 04/14/222204 Lisinopril (Zestril) 5 Mg Tablet, 5 MG PO DAILY, (Reported) Entered as Reported by: KARTHIKEYAN GRACE on 02/09/17 0933 Ondansetron (Ondansetron Odt) 4 Mg Tab.rapdis, 4 MG PO Q6H Prescribed by: TUCKER GILLIAM MD on 07/15/21 2252 Potassium Chloride (Potassium Chloride) 20 Meq Tablet.er, 20 MEQ PO DAILY Prescribed by: SANDY PATEL on 04/14/222204 Review of Systems Review of Systems Constitutional: see HPI Past Lflaixy-Gujcof-Fjmpzd Hx Patient Social History Tobacco Use?: Yes Tobacco type used: Cigarettes Use of E-Cig and/or Vaping dev: No Substance use?: No Alcohol Use?: No Pt feels they are or have been: No Immunizations Up To Date Influenza Vaccine Up-to-Date: No; Not Current First/Initial COVID19 Vaccinat: X2 Second COVID19 Vaccination Gibson: X2 Seasonal Allergies Seasonal Allergies: Yes Past Medical History Surgery/Hospitalization HX: cholecystectomy, t/a, htn, chf Surgeries: Yes Adenoidectomy, Gallbladder, Tonsillectomy Respiratory: Yes (OCCATIONAL BRONCHITIS) Cardiac: Yes Hypertension Neurological: Yes Headaches /Migraines 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 oz. 98.359387mb; 34.00 BMI Method:Stated General Appearance: WD/WN, no apparent distress, other (Speaks in full sentences no respiratory distress no accessory muscle use no tachypnea no tachycardia no hypoxia) Eyes: Bilateral Eye Normal Inspection, Bilateral Eye PERRL, Bilateral Eye EOMI HEENT: PERRL/EOMI, normal ENT inspection Respiratory: no respiratory distress, no accessory muscle use, decreased breath sounds (Diminished throughout) Cardiovascular: no murmur Gastrointestinal: normal bowel sounds, non tender, soft Neurologic/Psychiatric: alert, normal mood/affect, oriented x 3 Skin: normal color, warm/dry Progress/Results/Core Measures Suspected Sepsis SIRS Temperature: Pulse: 93 Respiratory Rate: 22 Laboratory Tests 04/14/22 20:27: White Blood Count 8.5 Blood Pressure 154 /115 Mean: 128 Laboratory Tests 04/14/22 20:27: Creatinine 1.00, Platelet Count 241, Total Bilirubin 1.0 Results/Orders Lab Results Laboratory Tests Test 04/14/22 20:27 Range/Units White Blood Count 8.5 4.3-11.0 10^3/uL Red Blood Count 4.50 3.80-5.11 10^6/uL Hemoglobin 13.3 11.5-16.0 g/dL Hematocrit 40 35-52 % Mean Corpuscular Volume 90 80-99 fL Mean Corpuscular Hemoglobin 30 25-34 pg Mean Corpuscular Hemoglobin Concent 33 32-36 g/dL Red Cell Distribution Width 13.7 10.0-14.5 % Platelet Count 241 130-400 10^3/uL Mean Platelet Volume 10.1 9.0-12.2 fL Immature Granulocyte % (Auto) 1 % Neutrophils (%) (Auto) 72 42-75 % Lymphocytes (%) (Auto) 21 12-44 % Monocytes (%) (Auto) 7 0-12 % Eosinophils (%) (Auto) 0 0-10 % Basophils (%) (Auto) 0 0-10 % Neutrophils # (Auto) 6.1 1.8-7.8 10^3/uL Lymphocytes # (Auto) 1.8 1.0-4.0 10^3/uL Monocytes # (Auto) 0.6 0.0-1.0 10^3/uL Eosinophils # (Auto) 0.0 0.0-0.3 10^3/uL Basophils # (Auto) 0.0 0.0-0.1 10^3/uL Immature Granulocyte # (Auto) 0.0 0.0-0.1 10^3/uL D-Dimer 1.28 H 0.00-0.49 UG/ML Sodium Level 142 135-145 MMOL/L Potassium Level 3.5 L 3.6-5.0 MMOL/L Chloride Level 105 98-107 MMOL/L Carbon Dioxide Level 25 21-32 MMOL/L Anion Gap 12 5-14 MMOL/L Blood Urea Nitrogen 12 7-18 MG/DL Creatinine 1.00 0.60-1.30 MG/DL Estimat Glomerular Filtration Rate 66 BUN/Creatinine Ratio 12 Glucose Level 156 H 70-105 MG/DL Calcium Level 9.0 8.5-10.1 MG/DL Corrected Calcium 9.2 8.5-10.1 MG/DL Total Bilirubin 1.0 0.1-1.0 MG/DL Aspartate Amino Transf (AST/SGOT) 16 5-34 U/L Alanine Aminotransferase (ALT/SGPT) 25 0-55 U/L Alkaline Phosphatase 66 40-136 U/L B-Type Natriuretic Peptide 3102.3 H <100.0 PG/ML Total Protein 6.5 6.4-8.2 GM/DL Albumin 3.8 3.2-4.5 GM/DL My Orders Orders - SANDY PATEL APRN Comprehensive Metabolic Panel (04/14/22 20:09) Cbc With Automated Diff (04/14/22 20:09) Bnp Queenie (04/14/22 20:09) Albuterol/Ipra Inhalation Soln (Duoneb I (04/14/22 20:15) Svn Small Volume Nebulizer (04/14/22 20:10) Chest Pa/Lat (2 View) (04/14/22 20:10) Ekg Tracing (04/14/22 20:12) Fibrin Degradation Products (04/14/22 20:12) Ct Angio Chest W (R/O Pe) (04/14/22 21:28) Iohexol Injection (Omnipaque 350 Mg/Ml 1 (04/14/22 21:45) Ns (Ivpb) (Sodium Chloride 0.9% Ivpb Bag (04/14/22 21:45) Potassium Chloride (Tablet) (K Dur Table (04/14/22 22:00) Furosemide Injection (Lasix Injection) (04/14/22 22:00) Medications Given in ED Current Medications Medications Dose Ordered Sig/Louis Route Start Time Stop Time Status Last Admin Dose Admin Albuterol/ Ipratropium 3 ml ONCE ONCE INH 04/14/22 20:15 04/14/22 20:16 DC 04/14/22 20:36 3 ML Furosemide 40 mg ONCE ONCE IVP 04/14/22 22:00 04/14/22 22:01 DC 04/14/22 22:25 40 MG Iohexol 100 ml ONCE ONCE IV 04/14/22 21:45 04/14/22 21:46 DC 04/14/22 21:48 80 ML Potassium Chloride 40 meq ONCE ONCE PO 04/14/22 22:00 04/14/22 22:01 DC 04/14/22 22:25 40 MEQ Sodium Chloride 100 ml ONCE ONCE IV 04/14/22 21:45 04/14/22 21:46 DC 04/14/22 21:49 80 ML Vital Signs/I&O 04/14/22 04/14/22 04/14/22 19:52 19:52 20:37 Temp 37.0 Pulse 93 Resp 22 B/P (MAP) 154/115 (128) Pulse Ox 94 93 O2 Delivery Room Air Room Air Room Air Capillary Refill : Less Than 3 Seconds Blood Pressure Mean: 128 Departure Communication (Admissions) 8873-Labs are unremarkable except for a potassium of the lower end of normal and a BNP of about 3000. Other electrolytes renal function normal. CBC shows normal white count. Chest x-ray shows cardiomegaly with increased vascular congestion. CT angio chest shows cardiomegaly with mild interstitial edema. No pulmonary embolism seen. Official radiologist report pending. Will give Lasix 40 mg IV here with potassium 40 mEq p.o. and discharged home with Lasix 40 mg p.o. daily and potassium 20 mEq p.o. daily x5 days. She will follow-up with the journalists and other writers here. She remains hemodynamically stable. Heart rate 85, oxygen 95% on room air respiratory rate 23 blood pressure 149/100. Impression Primary Impression: CHF exacerbation Disposition: HOME, SELF-CARE Condition: Improved Departure-Patient Inst. Decision time for Depature: 22:01 Referrals: AND[facility] LUIS CASTILLO MD [facility] (PCP) Primary Care Physician Add. Discharge Instructions: You have been given a prescription for potassium chloride and Lasix. Take these medications once daily. Follow up with your primary care provider in 3-5 days We have provided the numbers for two of the cardiologists here. Call one of them in the morning to schedule an appointment for as soon as you can. Return to the ER if you have increased shortness of breath, fever, or worsening symptoms. All discharge instructions reviewed with patient and/or family. Voiced understanding. Scripts Potassium Chloride (Potassium Chloride) 20 Meq Tablet.er 20 MEQ PO DAILY, #5 TAB Prov: SANDY PATEL CHIEF LIBRARIAN BRANCH 04/14/22 Furosemide (Lasix) 40 Mg Tablet 40 MG PO DAILY, #5 TAB Prov: SANDY PATEL CHIEF LIBRARIAN [employer]ANCH 04/14/22 SANDY PATEL APRN Apr 14, 2022 20:27
[2022-04-14 20:35] LABS: BASOPHILS % (AUTO) 0 % (0-10); EOSINOPHILS % (AUTO) 0 % (0-10); HEMATOCRIT 40 % (35-52); HEMOGLOBIN 13.3 g/dL (11.5-16.0); LYMPHOCYTES # (AUTO) 1.8 10^3/uL (1.0-4.0); LYMPHOCYTES % (AUTO) 21 % (12-44); MEAN CORPUSCULAR HEMOGLOBIN 30 pg (25-34); MEAN CORPUSCULAR HGB CONC 33 g/dL (32-36); MEAN CORPUSCULAR VOLUME 90 fL (80-99); MEAN PLATELET VOLUME 10.1 fL (9.0-12.2); MONOCYTES # (AUTO) 0.6 10^3/uL (0.0-1.0); MONOCYTES % (AUTO) 7 % (0-12); NEUTROPHILS # (AUTO) 6.1 10^3/uL (1.8-7.8); NEUTROPHILS % (AUTO) 72 % (42-75); PLATELET COUNT 241 10^3/uL (130-400); WHITE BLOOD COUNT 8.5 10^3/uL (4.3-11.0)
--- NOTE | 2022-04-14 20:36 | Diagnostic Imaging Report ---
INDICATION: Cough, shortness of breath, recent pneumonia. TECHNIQUE: Two view chest 8:27 PM CORRELATION STUDY: 07/15/2021 FINDINGS: Heart size enlarged. Mediastinum is mildly prominent. Vasculature overall appears increased from prior. The lungs are clear with no consolidating infiltrate. There is no significant pleural effusion or pneumothorax. Presumed cholecystectomy clips in the upper abdomen. IMPRESSION: 1. Stable cardiac enlargement. Vasculature appears slightly increased, may reflect early edema. No definitive infiltrate. Dictated by: Dictated on workstation # [id number]
[2022-04-14 21:20] LABS: ALBUMIN 3.8 GM/DL (3.2-4.5)
[2022-04-14 21:21] LABS: POTASSIUM 3.5 MMOL/L (3.6-5.0)
[2022-04-14 21:23] LABS: TOTAL PROTEIN 6.5 GM/DL (6.4-8.2)
[2022-04-14] MEDS ORDERED: IOHEXOL 350 MG/ML 100 ML (OMNIPAQUE 350) VIAL IV ONE (21:45)
[2022-04-14] MEDS ORDERED: NS 100 ML (IVPB) BAG IV ONE (21:45)
[2022-04-14] MEDS ORDERED: FUROSEMIDE 40 MG/4 ML INJ (LASIX) IVP ONE (22:00)
[2022-04-14] MEDS ORDERED: KCL 20 MEQ TAB (K-DUR) PO ONE (22:00)
[2022-04-14] MEDS ORDERED: POTA-51 PO (22:05)
[2022-04-14] MEDS ORDERED: FURO-124 PO (22:05)
--- NOTE | 2022-04-14 22:47 | Diagnostic Imaging Report ---
INDICATION: 56-year-old female, elevated D-dimer, shortness of breath. Diagnosed with pneumonia 2 weeks ago. Shortness of air with exertion. TECHNIQUE: Multiple contiguous axial images were obtained through the chest following the administration of intravenous contrast. Multiplanar including MIP reformatted images. Auto exposure controls were utilized during the CT exam to meet ALARA standards for radiation dose reduction. CORRELATION: None FINDINGS: Heart size enlarged but without disproportionate right heart strain. No pericardial effusion. There is prominence of the ascending aorta measuring up to 3.9 cm. There is no pulmonary artery filling defect to suggest pulmonary embolism. No pathologically enlarged mediastinal lymph nodes. Azygos vein mildly distended. Minimal groundglass opacities at the lung arellano likely hypoventilation. No consolidating infiltrate. Trace pleural effusions. Probable cyst left hepatic lobe. Gallbladder absent. Minimal asymmetric right perinephric stranding, nonspecific. Low-density lesion superior pole left kidney favors probable cyst but incompletely characterized. Negative for acute bony abnormality of the osseous structures. Prominent bridging osteophytes thoracic spine. IMPRESSION: 1. No CT evidence for pulmonary embolism. 2. Heart size enlarged with mild distention of the azygos vein, trace pleural effusions may reflect early edema. Dictated by: Dictated on workstation # [id number]
[2022-04-14 23:11] VITALS: BP 146/97
== END 2022-04-14 23:11 | disposition home or self-care (01) ==
LOC: EDUNIT# 19:48 → ER 19:50
DX: I11.0 Hypertensive heart disease with heart failure (principal); I50.9 Heart failure, unspecified; F17.210 Nicotine dependence, cigarettes, uncomplicated
CPT/HCPCS: 36415; 71046; 71275; 80053; 83880; 85025; 85379; 93005; 94640